=== PATIENT | female | born 1990 | race Caucasian/White ===

== ENCOUNTER → 2020-09-25 16:13 | Outpatient (CLI) | payer OTHER, SELFPAY ==
[2020-09-25 16:58] LABS: ALB/GLOB Ratio 1.1 RATIO (0.9-2.4); AST(SGOT) 21 U/L (15-37); Alanine Aminotransfer ALT/SGPT 31 U/L (13-56); Albumin, Serum 3.7 g/dL (3.2-5.0); Alkaline Phosphatase 36 U/L (45-117); Anion Gap 5 (5-15); BUN 10 mg/dL (7-18); BUN/Creat Ratio 13.4 RATIO (10-20); Calcium,Total 8.6 mg/dL (8.5-10.1); Chloride 110 mmol/L (98-107); Creatinine, Serum 0.75 mg/dL (0.55-1.02); EST Glomerular Filtration Rate 96 mL/min (>60); Est Glom Filt Rate - Afr Amer 116 mL/min (>60); Globulin 3.4 g/dL (2.2-4.2); Glucose 97 mg/dL (74-106); Potassium 3.9 mmol/L (3.5-5.1); Protein, Total 7.1 g/dL (6.4-8.2); Sodium Level 141 mmol/L (136-145)
[2020-09-25 17:14] LABS: hCG Titer Quant., Serum 6124 mIU/mL (1-3)
== END ==
PROVIDERS: Visit Provider Obstetrics & Gynecology
DX: O02.1 Missed abortion (principal)
CPT/HCPCS: 36415; 80053; 84702

== ENCOUNTER 2020-09-27 07:17 | Day surgery (SDC) | payer OTHER, SELFPAY ==
[2020-09-27] VITALS (9 sets, daily range): BP systolic 98–116; BP diastolic 57–74; PULSE 62–87; RESP 16; TEMP 36.1–36.9; O2SAT 99–100; BMI 26.5
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
--- NOTE | 2020-09-27 07:45 | POC_PTH ---
PATIENT: NATALEE WERNER LOC: [facility] [place] U#:[id number] AGE/SX: 29/F ROOM: RE09/27/[address]: Dr. Morgan Macedo MD : 1990 BED: DIS: 09/27/2020 SPEC #: [id number] RECD: 09/27/20 08:53 STATUS: ANATOLY REQ #: [id number] JERARDO: 09/27/20 07:[address]: Morgan Macedo DEPT: SURGICAL PATHOLOGY RECD BY: Jenniffer Ballesteros ENTERED: 09/28/20 08:07 SP TYPE: PROD CONC OTHR DR: Dr. Morgan Macedo MD ED Physician Provider Tissues: Product of conception, NOS Procedures: Surgery Specimen Level IV Comments: @ Ordering doctor for SUIV edited from ROSIBEL to @ by PAULIE at 09/28/20 0937 @ Submitting doctor edited from ROSIBEL to @ by PAULIE at 09/28/20 0937 HEADER OPERATION: Suction dilation and curettage PRE-OP DIAGNOSIS: Missed , suspect molar TISSUE SUBMITTED: Products of conception MICROSCOPIC DIAGNOSIS Products of conception: Decidua, gestational endometrium and immature chorionic villi (products of conception). See comment. SILVIA:serena 09/29/2020 COMMENT The specimen predominantly consists of decidua and gestational endometrium. Hydropic villi consistent with molar are not seen. The entire specimen is examined. A portion of tissue is submitted for cytogenetic studies and the results will be reported as an addendum. Clinical correlation and appropriate follow up are necessary. Case has been reviewed in consultation with Dr. Morales who concurs with the above diagnosis. IDC:AM MICROSCOPIC DESCRIPTION Slides are reviewed. GROSS DESCRIPTION Received in fixative is one container labeled with the patient's name and designated products of conception, suspect molar . The specimen consists of multiple irregular fragments of pink soft tissue that in aggregate measure 5 x 5 x 1.5 cm. A portion of tissue is submitted for cytogenetic studies. The entire specimen is submitted in six cassettes. / SILVIA:serena 09/28/20 TC:5 CPT: 27332 ADDENDUM ADDENDUM ADDENDUM ADDENDUM ADDENDUM ADDENDUM 10/07/2020 10:04 ADDENDUM 10/07/2020 10:04 ADDENDUM 10/07/2020 10:04 ADDENDUM 10/07/2020 10:04 ADDENDUM 10/07/2020 10:04 CYTOGENETICS REPORT FROM [facility] Case cancelled. No viable tissue or villi is present. Please see complete report in e-chart or EMR for further details
--- NOTE | 2020-09-27 08:44 | PCM.OPRPT ---
Report of Operation Date of Procedure: 09/27/20 Pre-Operative Diagnosis: Missed , suspected molar Post-Operative Diagnosis: Missed , suspected molar Surgery/Procedure Performed:: Ultrasound-guided suction dilation and curettage Description of Surgical Findings:: Surgeon: Morgan Macedo MD Anesthesia: MAC EBL: 25 cc Urine output: Not measured IV fluids: 200 cc Complications: None Specimen: Products of conception Findings: Ultrasound revealed similar findings to the office gestational sac with large amount of debris in the uterus. After suction dilation and curettage thin endometrial stripe noted on ultrasound. Consent: 29-year-old G2, P0 arrived originally with gestational sac with no embryo repeat ultrasound with similar findings diagnostic of missed . Second ultrasound also showed large amount of debris in uterus, hCG level greater than 6000, all other labs within normal limits. Based on these findings concern for molar . Patient in need of suction dilation and curettage. Patient understands the risk of the procedure include but are not limited to visceral vascular injury, prolonged hospitalization, blood loss and need for transfusion, reoperation. Patient state understanding wish to proceed. All questions consent was signed. Procedure: Patient was brought back to the OR where MAC anesthesia was found be adequate. 200 mg of doxycycline were given for infection prophylaxis. Patient was prepared and draped in dorsolithotomy position with yellowfin stirrups. Weighted speculum is placed in the posterior aspect of vagina. Cervical dilators used to dilate cervix. Ultrasound with above findings. Suction curettage was performed with 7 mm curved curette. Tissue to be sent to pathology. Ultrasound again was performed with thin endometrial stripe noted as above. Good hemostasis was noted. All counts correct x2. Patient tolerated procedure well was brought to recovery stable condition.
--- NOTE | 2020-09-27 08:50 | DCINST_ITS ---
Discharge Diet: No Restrictions Discharge Activity: Return to Normal Activity, May Drive, May Shower, - - no tub baths for two weeks May resume sexual activity in: 4-6 weeks Weight Bearing Status: Weight bearing as tolerated Call your doctor if your incision/area has: Continuous Slow Oozing, Foul Smelling Discharge Call your doctor if you observe: Fever of 101 or Higher, Shortness of breath, Chest pain Allergies/Adverse Reactions: Allergies No Known Allergies Allergy (Verified 09/27/20 07:30) Medications to take at Discharge NK 09/27/20 Primary Care Physician: Morgan Macedo MD [Primary Care Provider] - Test Results: Test results from this visit will be discussed in further detail at your follow- up appointment, if applicable. Please Follow Up With: Morgan Macedo MD When: two weeks
== END 2020-09-27 09:35 | disposition home or self-care (01) ==
LOC: SDC 07:49 → ED 08:00 → SDC 08:01 → ACINP 08:08
PROVIDERS: Visit Provider Obstetrics & Gynecology
PROC: (CPT 59812; principal; 2020-09-27 07:45)
DX: O02.89 Other abnormal products of conception (principal)
CPT/HCPCS: 59812; 88305; J7030; J2405

== ENCOUNTER 2021-07-13 11:27 | Outpatient (CLI) | payer OTHER, SELFPAY ==
[2021-07-13 11:34] VITALS: BP 123/78; PULSE 65; RESP 16; TEMP 36.4; O2SAT 100; BMI 27.1
[2021-07-13] MEDS: 0.9% Saline Lock 10 ML Syringe IV (11:39)
[2021-07-13 12:30] VITALS: BP 108/68; PULSE 70; RESP 16; TEMP 36.8; O2SAT 99
[2021-07-13 13:23] VITALS: BP 104/66; PULSE 69; RESP 16; TEMP 36.9; O2SAT 100
== END 2021-07-13 13:27 | disposition home or self-care (01) ==
LOC: MS3OUT 11:27 → MS3 11:27
PROVIDERS: Referring Provider Nurse Practitioner Acute Care; Visit Provider Nurse Practitioner Acute Care
DX: Z23 Encounter for immunization (principal); U07.1 COVID-19
CPT/HCPCS: J7050; M0245; Q0245; A4216

== ENCOUNTER 2021-09-22 08:38 | Outpatient (CLI) | payer OTHER, SELFPAY ==
[2021-09-22 09:20] LABS: Glucose GTT-Gestation. Fasting 87 mg/dL (<105)
[2021-09-22 11:26] LABS: Glucose GTT-Gestational 2 Hr 150 mg/dL (<165)
[2021-09-22 11:26] LABS: Glucose GTT-Gestational 1 Hr 150 mg/dL (<190)
[2021-09-22 12:54] LABS: Glucose GTT-Gestational 3 Hr 111 L (<145)
== END 2021-09-22 23:59 | disposition home or self-care (01) ==
LOC: WOBLAB 08:40
PROVIDERS: Visit Provider Obstetrics & Gynecology
DX: O24.912 Unspecified diabetes mellitus in pregnancy, second trimester (principal); Z3A.00 Weeks of gestation of pregnancy not specified
CPT/HCPCS: 36415; 82951; 82952

== ENCOUNTER 2021-11-15 18:53 | Inpatient (IN) | payer OTHER, SELFPAY ==
[2021-11-15 19:05] VITALS: BMI 33.2
[2021-11-15 19:10] VITALS: BP 121/84; PULSE 94
[2021-11-15] MEDS: Lactated Ringers 1,000 ML 50 ML IV (19:15)
[2021-11-15 19:31] LABS: Absolute Lymphocyte Count 2.28 X10^3/uL (0.83-4.51); Absolute Neutrophil Count 7.2 X10^3/uL (2.0-7.7); Basophil# 0.03 X10^3/uL; Basophil% 0.3 % (0-1); Eosinophil# 0.08 X10^3/uL; Eosinophils% 0.8 % (0-5); Hematocrit 36.5 % (37-47); Hemoglobin 12.6 g/dL (12.0-15.0); Lymphocyte # 2.28 X10^3/ul (0.83-4.51); Lymphocyte % 21.5 % (19-41); Mean Corp Hgb Conc 34.5 g/dL (32-36); Mean Corpuscular Hgb 30.4 pg (27.0-32.0); Mean Platelet Vol. 11.4 fl (6.2-12.0); Monocyte# 0.96 X10^3/uL; NRBC Flagged by Analyzer 0 % (0-5); Neutrophil # 7.22 X10^3/uL (2.7-7.7); Platelet Count 194 K/mm3 (150-450); RBC Distribution Width CV 12.2 % (11.6-14.6); RBC Distribution Width SD 39.3 fl (35.1-43.9); Red Blood Count 4.15 M/mm3 (4.2-5.4); White Blood Count 10.6 K/mm3 (4.4-11.0)
[2021-11-15 19:57] VITALS: BP 119/84; PULSE 104; TEMP 36.8
[2021-11-15 20:01] VITALS: PULSE 91; O2SAT 97
[2021-11-15] MEDS: miSOPROStol 25 MCG TABLET VAGINAL (20:10)
--- NOTE | 2021-11-15 20:25 | PCM.HP.BLA ---
History and Physical Date of Admission: 11/15/21 Chief complaint: Induction of labor at term History present illness: 31-year-old at 39 weeks and 5 days with PORTER 11/17/2021 by LMP arrives for induction of labor at term. Denies headache, visual changes, chest pain, shortness of breath, nausea vomiting, right upper quadrant pain. Patient has good movement. Septic history: G1: SAB ~20 G2: SAB ~21 G3: Current Past medical history: None Medications: vitamin Past surgical history: D&C Allergies: No known drug allergies Social history: Denies smoking, alcohol use, drug use Family history: Denies history DVT or PE Review of systems: Besides above pertinent positives a full review of systems was performed and found to be negative Physical exam: Vitals: Pulse 91 SpO2 97% on room air General: Normal appearing no acute distress HEENT: Normocephalic atraumatic no cervical adenopathy Cardiac/respiratory: Denies of excess muscles, nonlabored breathing Abdomen: Soft, nontender, gravid Extremities: No peripheral edema normal peripheral pulses Psych: Normal affect normal demeanor nonpressured speech Labs: White blood cell count 10.6, hemoglobin 12.6, hematocrit 36.5%, platelets 194 Assessment plan: 31-year-old G3, P0 at 39 weeks and 5 days arrives for induction of labor at term Abdomen labor and delivery CEFM GBS negative Cytotec induction Routine orders
[2021-11-16] VITALS (51 sets, daily range): BP systolic 96–150; BP diastolic 53–94; PULSE 57–118; RESP 16; TEMP 36.2–36.6; O2SAT 80–99
[2021-11-16] MEDS: miSOPROStol 25 MCG TABLET VAGINAL (00:30)
[2021-11-16] MEDS: Lactated Ringers 500 ML 999 ML IV ×2 (03:43→04:34)
[2021-11-16] MEDS: fentaNYL-bupivacaine (epidural) 100 ML BAG EPIDURAL ×2 (04:56→10:02)
--- NOTE | 2021-11-16 05:01 | PCM.PN.OB ---
Subjective Subjective Patient now comfortable with epidural. Objective Data Objective Data Vital Signs: Vital Signs Temp Pulse BP Pulse Ox 97.5 F L 71 121/73 H 96 11/16/21 03:36 11/16/21 05:01 11/16/21 05:01 11/16/21 04:56 Weight: 82.372 kg Body Mass Index (BMI) 33.2 Intake & Output: Intake and Output for Last 24 Hours 11/14/21 11/15/21 11/16/21 23:59 23:59 23:59 Intake Total 990.00 / 990.00 Balance 990.00 / 990.00 Lab / Micro Data Result Diagrams: 11/15/21 19:15 Labs: Laboratory Results - last 24 hr 11/15/21 19:15: WBC 10.6, RBC 4.15 L, Hgb 12.6, Hct 36.5 L, MCV 88.0, MCH 30.4, MCHC 34.5, RDW Std Deviation 39.3, RDW Coeff of Paula 12.2, Plt Count 194, MPV 11.4, Immature Gran % (Auto) 0.400, Neut % (Auto) 68.0, Lymph % (Auto) 21.5, [place] % (Auto) 9.0, Eos % (Auto) 0.8, Baso % (Auto) 0.3, Absolute Neuts (auto) 7.2, Absolute Lymphs (auto) 2.28, Nucleated RBC % 0 11/15/21 19:15: Blood Type A POSITIVE, Antibody Screen NEGATIVE Micro: Microbiology 11/15/21 19:15 Nasal Secretion SARS-CoV-2 Antigen (Rapid) - Final Physical Exam Const alert, oriented x3 and no apparent distress Resp normal respiratory effort GI Inspection: gravid Narrative: Last cervical exam by RN 2 cm NST FHR Rate Baby A Baseline: 135 Variability:: Moderate Accelerations:: 15 x 15 Decelerations:: None FHR Category:: Category I Uterine Activity:: q1-5 min Assessment & Plan (1) Elective induction of labor planned: PLAN: 39/6 weeks. Patient now comfortable with epidural. Plan to switch to Pitocin. We will start with contractions spaced out. All questions answered. (2) :
[2021-11-16] MEDS: Lactated Ringers 1,000 ML 200 ML IV ×2 (05:57→11:11)
[2021-11-16] MEDS: Oxytocin 30 units/NS 500 ml 30 UNITS/500 ML IV.SOLN IV (06:05)
[2021-11-16] MEDS: Amnioinfusion- 0.9% NS 1,000 ML IV.SOLN. INTRA-UTER (12:15)
[2021-11-16] MEDS: Cefazolin 2 GM in 0.9% Normal Saline 100 ML IV (12:32)
--- NOTE | 2021-11-16 13:11 | EX.PCM.OBRPT ---
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 Normal uterus, tubes, and ovaries. Consent: Patient arrived for induction of labor at term progressed with Cytotec and Pitocin noted to have SROM. Began to have variable decelerations, IUPC and FSE placed amnioinfusion started. Noted to have prolonged deceleration 50s to 60s for 6 to 7 minutes. OB stat was called, I arrived to the operating room with patient on hands and knees with now normal baseline heart tones. Patient was changed position to supine and cervix was checked, unchanged from previous nursing check 6 to 7 cm. Patient was watched in the OR for a prolonged period of time with recurrent variable decelerations even with amnioinfusion. Educated patient on findings. Discussed expectant management versus surgical management risk benefits alternatives. Patient elects for primary section for nonreassuring heart tones. Patient understands the risk of the procedure include but are not limited to visceral or vascular injury, prolonged hospitalization, blood loss and need for transfusion, reoperation. Patient state understanding and wished to proceed. All questions were answered and verbal consent was given. Procedure: Patient was brought back to the OR as noted above and given 2 g of Ancef and 500 mg of azithromycin for infection prophylaxis. Patient was prepared and draped in a supine position with leftward tilt. A Pfannenstiel incision was made at the skin with a scalpel. The incision was carried down to the fascia with a scalpel. The fascia was excised and extended laterally. Inferior aspect of the fascia was grasped and the underlying rectus and pyramidalis muscle were dissected off sharply with Casey scissors. In a similar aspect the superior aspect of the fascia was grasped with a clamp and the underlying rectus muscle was dissected off sharply. Rectus muscle was dissected at the midline down to the level of the pubic symphysis. Preperitoneal fatty tissue was noted and peritoneum was entered bluntly. Peritoneum was extended superiorly and inferiorly with good visualization of bladder. Bladder blade was inserted and vesicouterine peritoneum was identified. Low transverse hysterotomy was made. Hand was brought to the incision and gentle fundal pressure was applied once the head was brought in the incision and the bladder blade was removed. Head and shoulders were delivered with ease. Cord was cut and clamped. They was handed off to nursing. Placenta was delivered via cord traction and fundal massage. IV oxytocin was initiated in order to facilitate uterine contractions. Uterus was exteriorized and hysterotomy was closed in a continuous running fashion. Second layer was performed. Good hemostasis was noted. Uterus was placed back into the abdominal cavity and incision was reinspected, good hemostasis was noted. Fascia was closed in a continuous running fashion with PDS suture. Subcutaneous irrigation was performed. Skin was closed in a subcuticular fashion. All counts were correct x2. Patient tolerated procedure well and was brought to recovery in stable condition.
[2021-11-16] MEDS: Oxytocin 30 units/NS 500 ml 30 UNITS/500 ML IV.SOLN 167 UNITS IV (13:30)
[2021-11-16] MEDS: Ketorolac 30 MG/ML Syringe IV ×2 (14:15→20:08)
--- NOTE | 2021-11-16 14:20 | CM.ED ---
SW Note SW responded to ERT. SW provided emotional support to fob. SW remains available if needs arise. Socorro SIMS
[2021-11-16] MEDS: Lactated Ringers 1,000 ML 100 ML IV (16:33)
[2021-11-16] MEDS: Acetaminophen 500 MG Tablet 1000 MG PO ×2 (16:44→22:15)
[2021-11-17 00:35] VITALS: BP 99/65; PULSE 63; RESP 16; TEMP 36.3; O2SAT 97
[2021-11-17] MEDS: Enoxaparin 40 MG/0.4 ML Syringe SC ×2 (00:42→22:23)
[2021-11-17] MEDS: 0.9% Saline Lock 10 ML Syringe IV (02:12)
[2021-11-17] MEDS: Ketorolac 30 MG/ML Syringe IV ×2 (02:12→08:15)
[2021-11-17] MEDS: Acetaminophen 500 MG Tablet 1000 MG PO ×4 (04:32→22:19)
[2021-11-17 04:44] VITALS: BP 108/63; PULSE 71; RESP 16; TEMP 36.9; O2SAT 95
[2021-11-17 05:09] LABS: Hematocrit 30.8 % (37-47); Hemoglobin 10.5 g/dL (12.0-15.0); Mean Corp Hgb Conc 34.1 g/dL (32-36); Mean Corpuscular Hgb 30.5 pg (27.0-32.0); Mean Corpuscular Volume 89.5 fL (81-99); Mean Platelet Vol. 10.8 fl (6.2-12.0); Platelet Count 145 K/mm3 (150-450); RBC Distribution Width CV 12.4 % (11.6-14.6); RBC Distribution Width SD 40.3 fl (35.1-43.9); Red Blood Count 3.44 M/mm3 (4.2-5.4); White Blood Count 11.5 K/mm3 (4.4-11.0)
[2021-11-17 08:00] VITALS: BP 115/70; PULSE 68; RESP 16; TEMP 36.3; O2SAT 96
--- NOTE | 2021-11-17 09:14 | PCM.PN.OB ---
Subjective Subjective Pt without complaints. Tolerating diet well. Denies flatus. Minimal vaginal bleeding. Pain well controlled. Objective Data Objective Data Good urine output. CBC OK. Vital Signs: Vital Signs Temp Pulse Resp BP Pulse Ox 97.3 F L 68 16 115/70 96 11/17/21 08:00 11/17/21 08:00 11/17/21 08:00 11/17/21 08:00 11/17/21 08:00 Oxygen Delivery Method Room Air Weight: 181 lb 9.6 oz Body Mass Index (BMI) 33.2 Intake & Output: Intake and Output for Last 24 Hours 11/15/21 11/16/21 11/17/21 23:59 23:59 23:59 Intake Total 3969.30 / 3969.30 803.33 / 803.33 Output Total 1200 / 1200 1525 / 1525 Balance 2769.30 / 2769.30 -721.67 / -721.67 Lab / Micro Data Result Diagrams: 11/17/21 05:00 Labs: Laboratory Results - last 24 hr 11/17/21 05:00: WBC 11.5 H, RBC 3.44 L, Hgb 10.5 L, Hct 30.8 L, MCV 89.5, MCH 30.5, MCHC 34.1, RDW Std Deviation 40.3, RDW Coeff of Paula 12.4, Plt Count 145 L, MPV 10.8 Micro: Microbiology 11/15/21 19:15 Nasal Secretion SARS-CoV-2 Antigen (Rapid) - Final Assessment & Plan (1) Delivery by section: PLAN: Doing well POD 1 s/p primary for FTP. Continuing present care.
[2021-11-17] MEDS: Senna/Docusate Sodium 1 Tablet PO (10:30)
[2021-11-17 14:38] VITALS: BP 116/67; PULSE 65; RESP 16; TEMP 36.4; O2SAT 94
[2021-11-17] MEDS: Ibuprofen 600 MG Tablet PO ×2 (14:52→20:17)
--- NOTE | 2021-11-17 18:51 | NURSING ---
this RN has reviewed and agrees with charting completed by Alexis Meraz, orienting RN
[2021-11-17 20:01] VITALS: BP 108/64; PULSE 89; RESP 16; TEMP 36.8
[2021-11-18 02:17] VITALS: BP 118/65; PULSE 60; RESP 16; TEMP 36.8; O2SAT 95
[2021-11-18] MEDS: Ibuprofen 600 MG Tablet PO ×2 (02:19→07:52)
[2021-11-18] MEDS: Acetaminophen 500 MG Tablet 1000 MG PO (03:59)
--- NOTE | 2021-11-18 07:18 | PCM.DC.BLA ---
Discharge Summary Date of Admission: 11/16/21 Date of Discharge: 11/18/21 Summary: Patient arrived on 11/15/2021 for induction of labor at term. Subsequently had nonreassuring heart tones and proceeded with primary section on 11/16/2021. Routine postop recovery. Patient discharged home on 11/18/2021 Meaningful Use Info Meaningful Use Diagnoses (Choose all that apply): None applicable Discharge Plan Admission Admit Date/Time: 11/15/21 18:53 Primary Reason for Your Visit: Induction of labor Attending Provider: Morgan Macedo Primary Care Provider: Care ,Bleén Primary Instructions Additional Instructions / Restrictions: Regular diet. No lifting over 25 pounds for 2 to 3 weeks. No tub baths for 2 weeks. Okay to shower. [place] for 4 to 6 weeks. Call if fevers, chills, chest pain, shortness of breath. Follow-up 2 weeks postoperatively, 4 to 6 weeks Discharge Orders/Prescriptions Prescriptions: New oxycodone 5 mg Tablet 5 mg PO Q6H PRN PRN (Reason: Pain Score 7-10) 4 Days Qty: 16 RF: 0 Continued [id number] 1 mg Tablet 1 tab PO DAILY RF: 0 Referrals / Follow Up: Care Physician,No Primary [Primary Care Provider] - Disposition Disposition (needs filled in before D/C Order can be placed): Home, Self Care
--- NOTE | 2021-11-18 07:19 | PCM.PN.OB ---
Subjective Subjective No overnight complaints. Pain well controlled. Objective Data Objective Data Vital Signs: Vital Signs Temp Pulse Resp BP Pulse Ox 98.2 F 60 16 118/65 95 11/18/21 02:17 11/18/21 02:17 11/18/21 02:17 11/18/21 02:17 11/18/21 02:17 Oxygen Delivery Method Room Air Weight: 181 lb 9.6 oz Body Mass Index (BMI) 33.2 Intake & Output: Intake and Output for Last 24 Hours 11/16/21 11/17/21 11/18/21 23:59 23:59 23:59 Intake Total 3969.30 / 3969.30 803.33 / 803.33 Output Total 1200 / 1200 1525 / 1525 Balance 2769.30 / 2769.30 -721.67 / -721.67 Lab / Micro Data Result Diagrams: 11/17/21 05:00 Micro: Microbiology 11/15/21 19:15 Nasal Secretion SARS-CoV-2 Antigen (Rapid) - Final Physical Exam Const alert, oriented x3, no apparent distress, average body habitus, healthy appearing and well nourished HEENT normocephalic and moist oral mucous membranes Head and Scalp: atraumatic Face and Sinus: normal facial exam Neck full ROM Resp normal respiratory effort, no retractions and no use of accessory muscles GI GI Narrative: Soft, nontender, bandage clean dry and intact Extremity normal to inspection, full ROM and no clubbing, cyanosis or edema Psych mental status grossly normal, affect normal, speech normal and activity/motor behavior normal Assessment & Plan (1) Delivery by section: PLAN: Postop day 2 status post primary section for nonreassuring heart tones. Breast-feeding. Pain well controlled. Okay to discharge home today
[2021-11-18 07:49] VITALS: BP 119/72; PULSE 61; RESP 14; TEMP 36.7; O2SAT 97
== END 2021-11-18 09:34 | disposition home or self-care (01) | DRG 788 ==
PROVIDERS: Student in an Organized Health Care Education/Training Program; Admitting Provider Obstetrics & Gynecology; Visit Provider Obstetrics & Gynecology
DX: O76 Abnormality in fetal heart rate and rhythm complicating labor and delivery (principal); O26.23 Pregnancy care for patient with recurrent pregnancy loss, third trimester; O42.92 Full-term premature rupture of membranes, unspecified as to length of time between rupture and onset of labor; Z37.0 Single live birth; Z3A.39 39 weeks gestation of pregnancy
CPT/HCPCS: 59025; 59050; 85025; 85027; 86850; 86900; 86901; 87426; 99218; J7030; J7120; A4216; G0378

== ENCOUNTER → 2023-05-03 | Outpatient (CLI) | payer OTHER, SELFPAY ==
[2023-05-03 13:19] LABS: NATERA MAILED SPECIMEN
== END | disposition home or self-care (01) ==
LOC: LAB 12:18
PROVIDERS: PCP Internal Medicine; Referring Provider Obstetrics & Gynecology; Visit Provider Obstetrics & Gynecology
DX: Z34.82 Encounter for supervision of other normal pregnancy, second trimester (principal)
CPT/HCPCS: 36415

== ENCOUNTER → 2023-07-19 | Outpatient (CLI) | payer OTHER, SELFPAY ==
[2023-07-19 08:17] LABS: Absolute Lymphocyte Count 1.68 X10^3/uL (0.83-4.51); Absolute Neutrophil Count 5.9 X10^3/uL (2.0-7.7); Basophil# 0.03 X10^3/uL; Basophil% 0.4 % (0-1); Eosinophils% 1.2 % (0-5); Hemoglobin 12.4 g/dL (12.0-15.0); Lymphocyte # 1.68 X10^3/ul (0.83-4.51); Lymphocyte % 20.3 % (19-41); Mean Corp Hgb Conc 33.5 g/dL (32-36); Mean Corpuscular Hgb 31.2 pg (27.0-32.0); Mean Corpuscular Volume 93.2 fL (81-99); Mean Platelet Vol. 10.1 fl (6.2-12.0); Monocyte# 0.59 X10^3/uL; Monocyte% 7.1 % (0-10); NRBC Flagged by Analyzer 0 % (0-5); Neutrophil # 5.85 X10^3/uL (2.7-7.7); Neutrophil % 70.5 % (47-70); Platelet Count 146 K/mm3 (150-450); RBC Distribution Width CV 13.2 % (11.6-14.6); RBC Distribution Width SD 45.1 fl (35.1-43.9); Red Blood Count 3.97 M/mm3 (4.2-5.4); White Blood Count 8.3 K/mm3 (4.4-11.0)
[2023-07-19 08:39] LABS: Glucose Challenge Gest 1H 50g 126 mg/dL (70-140)
[2023-07-19 09:12] LABS: HIV - WCH Non-Reactive (Nonreactive); Syphilis Antibodies Non-reactive
== END | disposition home or self-care (01) ==
PROVIDERS: Registered Nurse; PCP Internal Medicine; Referring Provider Obstetrics & Gynecology; Visit Provider Obstetrics & Gynecology
DX: Z34.90 Encounter for supervision of normal pregnancy, unspecified, unspecified trimester (principal)
CPT/HCPCS: 36415; 82950; 85025; 86703; 86780; 86850; 86900; 86901

== ENCOUNTER → 2023-07-24 | Outpatient (CLI) | payer OTHER, SELFPAY ==
[2023-07-28 14:09] LABS: HPV APTIMA, High Risk Positive (Negative)
== END | disposition home or self-care (01) ==
LOC: LABSPEC 16:26
PROVIDERS: PCP Internal Medicine; Referring Provider Nurse Practitioner Women's Health; Visit Provider Nurse Practitioner Women's Health
DX: Z12.4 Encounter for screening for malignant neoplasm of cervix (principal)
CPT/HCPCS: 87624; 88175; G0145

== ENCOUNTER → 2023-08-24 | Outpatient (CLI) | payer OTHER, SELFPAY ==
--- OUTSIDE RECORDS SUMMARY | 2023-08-24 12:50 | XMS RPT_ITS | CCD ---
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 Pt denies fever,chills, vaginal discharge. Provider: Dr. Rodney Bauman CONSENT/INSTRUCTIONS: Carol has been counseled regarding the alternatives, effectiveness and potential complications of this procedure, including, but not limited to infection, bleeding, incomplete drainage or resolution, potential recurrence despite adequate drainage, and scarring. She has been advised of the recommendation to leave the Word catheter in place for six weeks, if possible. She has signed the form indicating her understanding of the above and agreement with undergoing this procedure. Consents witnessed. NARRATIVE: The area was cleansed with povidone iodine solution and anesthetized with 1% xylocaine, 2 cc. subcutaneously. After stabilizing manually, the cyst was punctured with a scalpel blade. purulent fluid exuded, culture was taken, and the opening was enlarged slightly with a hemostat. Then, a Word catheter was inserted into the cyst/abscess and the balloon inflated with 3 cc. saline. The patient tolerated the procedure well and left in good condition. See orders for prescriptions. PLAN: Return for follow-up in 1-2 weeks, if needed. She was advised to perform sitz baths bid and use a spray bottle of warm water to rinse after urination or bowel movements. Antibiotics given. * Olya Irving MA - 03/13/2020 10:11 AM EDT Review of Systems Constitutional: Negative. HENT: Negative. Eyes: Negative. Respiratory: Negative. Cardiovascular: Negative. Gastrointestinal: Negative. Endocrine: Negative. Genitourinary: Positive for genital sores. Musculoskeletal: Negative. Skin: Negative. Allergic/Immunologic: Negative. Neurological: Negative. Hematological: Negative. Psychiatric/Behavioral: Negative. All other systems reviewed and are negative. 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 Patient states thatlast week, she experienced a positive home test on and Monday. She is actively attempting conception. However, this morning, she began experiencing a moderate amount of spotting and cramping, which is the time her menses should begin. Review of Systems: Constitutional: Negative. HENT: Negative. Eyes: Negative. Respiratory: Negative. Gastrointestinal: Negative. Endocrine: Negative. Genitourinary: Positive for vaginal bleeding. Musculoskeletal: Negative. Skin: Negative. Neurological: Negative. Hematological: Negative. Psychiatric/Behavioral: Negative. Pt declines a tourist camp attendant for her pelvic exam today. Obstetrical History: OB History 0 Para 0 Term 0 0 AB 0 Living 0 SAB 0 TAB 0 Ectopic 0 Multiple 0 Live Births 0 Gynecology History: LMP: 06/28/2020 STIs: denies Abnormal pap smears: denies Past Medical History: No past medical history on file. Past surgical History: Past Surgical History: Procedure Laterality Date VAGINA SURGERY Injury as child Allergies No Known Allergies Social History: Social History Social History Narrative Not on file Family History: Family History Problem Relation Age of Onset Coronary artery disease Father Cancer Maternal Grandmother Cancer Paternal Grandfather Objective: PACU Vitals 07/29/20 0944 BP: 128/85 Pulse: 73 Temp: 98.1 F (36.7 C) SpO2: 98% Physical Exam: Physical Exam Constitutional: General: She is not in acute distress. Appearance: Normal appearance. She is normal weight. Neurological: General: No focal deficit present. Mental Status: She is alert and oriented to person, place, and time. Vitals signs reviewed. Assessment: Mrs Link is a 29 year old premenopausal G0 with no significant past medical history who presents with a chemical . Plan: // Chemical - Patient reports having two positive urine test last week - However this morning, she experienced a moderate amount of bleeding and cramping, similar to a menses - Vital signs stable - She reports minimal bleeding currently - UPT negative - These finding are consistent with a chemical , which is an early loss shortly after ovulation - This will not have any impact on fertility - Patient is actively trying to conceive and therefore recommend vitamins Mo Valenzuela M.D. * Karma Ramos MA - 07/29/2020 9:45 AM EST Review of Systems Constitutional: Negative. HENT: Negative. Eyes: Negative. Respiratory: Negative. Gastrointestinal: Negative. Endocrine: Negative. Genitourinary: Positive for vaginal bleeding. Musculoskeletal: Negative. Skin: Negative. Neurological: Negative. Hematological: Negative. Psychiatric/Behavioral: Negative. Pt declines a tourist camp attendant for her pelvic exam today. documented in this encounter Reason for Referral Specialty Diagnoses / Procedures Referred By Osei hernandez Referred To Contact Hematology Diagnoses Hypercoagulable state (HCC) Procedures CONSULT TO HEMATOLOGY OFFICE/OUTPATIENT [facility] MDM 60-74 MINUTES Syeda Shaver, CARL.REAL ESTATE INTERN [address] [place] [address] Referral ID Status Reason Start Date Expiration Date Visits Requested Visits Authorized [id number] Authorized PCP Requested Referral 12/08/2022 12/08/2023 1 1 Additional Source Comments INFORMATION SOURCE (unrecogn ized section and content) DATE CREATED AUTHOR AUTHOR'S ORGANIZ ATION 08/02/2020 [facility] DATE CREATED AUTHOR AUTHOR'S ORGANIZ ATION 04/30/2023 [facility] Reason for Visit (unrecogniz ed section and content) 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 Denies cramping. Urine test in office is negative. Reason Comments Established Patient Reason Comments Establish Care Reason Comments Patient Question Reason Comments Patient Question Addendum Note - Patricia Carter CNM - 03/13/2020 11:41 AM EDTAddendum Note - Karma Ramos MA - 03/13/2020 11:38 AM EDTAddendum Note - Mo Valenzuela MD - 07/29/2020 10:13 AM EST Miscellaneous Notes (unrecog nized section and content) Addended by: PATRICIA CARTER on: 03/13/2020 11:41 AM Modules accepted: Orders Addended by: KARMA RAMOS on: 03/13/2020 11:38 AM Modules accepted: Orders documented in this encounter Addended by: MO VALENZUELA on: 07/29/2020 10:13 AM Modules accepted: Level of Service documented in this encounter Source Comments (unrecognize d section and content) In the event this informatio n is protected by the Federal Confidentiality of Alcohol and Drug Abuse Patient Records regulations: The Federal rules restrict any use of the information to criminally investigate or prosecute any alcohol or drug abuse patient.[facility] the event this information is protected by the Federal Confidentiality of Alcohol and Drug Abuse Patient Records regulations: The Federal rules restrict any use of the information to criminally investigate or prosecute any alcohol or drug abuse patient.[facility] HospitalIn the event this information is protected by the Federal Confidentiality of Alcohol and Drug Abuse Patient Records regulations: The Federal rules restrict any use of the information to criminally investigate or prosecute any alcohol or drug abuse patient.[facility] the event this information is protected by the Federal Confidentiality of Alcohol and Drug Abuse Patient Records regulations: The Federal rules restrict any use of the information to criminally investigate or prosecute any alcohol or drug abuse patient.[facility] Hospital[facility] the event this information is protected by the Federal Confidentiality of Alcohol and Drug Abuse Patient Records regulations: The Federal rules restrict any use of the information to criminally investigate or prosecute any alcohol or drug abuse patient.[facility] HospitalIn the event this information is protected by the Federal Confidentiality of Alcohol and Drug Abuse Patient Records regulations: The Federal rules restrict any use of the information to criminally investigate or prosecute any alcohol or drug abuse patient.[facility] HospitalIn the event this information is protected by the Federal Confidentiality of Alcohol and Drug Abuse Patient Records regulations: The Federal rules restrict any use of the information to criminally investigate or prosecute any alcohol or drug abuse patient.[facility] Care Teams (unrecognized sec tion and content) Hose Seamer Relationship Specialty Start Date End Date Warren Briones MD [address] [place] [address] PCP - General Internal Medicine 11/21/22 Susanne Long MD [address] [place] [place] [address] Oncology 12/08/22 12/08/22 Vincent Edwards MD [address] [place] [address] Hematology/Oncology 12/08/22 12/08/22 Hose Seamer Relationship Specialty Start Date End Date Warren Briones MD [address] [place] [address] PCP - General Internal Medicine 11/21/22 Phil Messer MD [address] [place] [address] Hematology/Oncology 12/15/22 Hose Seamer Relationship Specialty Start Date End Date Warren Briones MD [address] [place], [place] [address] PCP - General Internal Medicine 11/21/22 Phil Messer MD [address] [place], [place] [id number] Hematology/Oncology 12/15/22 Hose Seamer Relationship Specialty Start Date End Date Warren Briones MD [address] [place], [place] [id number] PCP - General Internal Medicine 11/21/22 Phil Messer MD [address] [place], [place] [id number] Hematology/Oncology 12/15/22 FOR RECORDS PERTAINING TO PATIENTS WHO ARE OR HAVE BEEN ENROLLED IN A CHEMICAL DEPENDENCY/SUBSTANCEABUSE PROGRAM, SOME INFORMATION MAY BE OMITTED. This clinical summary was aggregated from multiple sources. Caution should be exercised in using it in the provision of clinical care. This summary normalizes information from multiple sources, and as a consequence, information in this document may materially change the coding, format and clinical context of patient data. In addition, data may be omitted in some cases. CLINICAL DECISIONS SHOULD BE BASED ON THE PRIMARY CLINICAL RECORDS. [facility]. provides no warranty or guarantee of the accuracy or completeness of information in this document.
[2023-08-24 13:09] LABS: Absolute Lymphocyte Count 1.75 X10^3/uL (0.83-4.51); Absolute Neutrophil Count 7.3 X10^3/uL (2.0-7.7); Basophil# 0.04 X10^3/uL; Basophil% 0.4 % (0-1); Eosinophil# 0.04 X10^3/uL; Eosinophils% 0.4 % (0-5); Hematocrit 38.2 % (37-47); Hemoglobin 13.2 g/dL (12.0-15.0); Lymphocyte # 1.75 X10^3/ul (0.83-4.51); Lymphocyte % 17.4 % (19-41); Mean Corp Hgb Conc 34.6 g/dL (32-36); Mean Corpuscular Hgb 31.3 pg (27.0-32.0); Mean Corpuscular Volume 90.5 fL (81-99); Mean Platelet Vol. 10.4 fl (6.2-12.0); Monocyte# 0.91 X10^3/uL; NRBC Flagged by Analyzer 0 % (0-5); Neutrophil # 7.29 X10^3/uL (2.7-7.7); Neutrophil % 72.5 % (47-70); Platelet Count 146 K/mm3 (150-450); RBC Distribution Width CV 13.1 % (11.6-14.6); RBC Distribution Width SD 42.6 fl (35.1-43.9); Red Blood Count 4.22 M/mm3 (4.2-5.4); White Blood Count 10.1 K/mm3 (4.4-11.0)
== END | disposition home or self-care (01) ==
LOC: LAB 12:27
PROVIDERS: Nurse Practitioner Women's Health; PCP Internal Medicine; Referring Provider Obstetrics & Gynecology; Visit Provider Obstetrics & Gynecology
DX: O99.119 Other diseases of the blood and blood-forming organs and certain disorders involving the immune mechanism complicating pregnancy, unspecified trimester (principal); D69.6 Thrombocytopenia, unspecified; Z3A.00 Weeks of gestation of pregnancy not specified
CPT/HCPCS: 36415; 85025

== ENCOUNTER 2023-08-30 14:00 | Outpatient (CLI) | payer OTHER, SELFPAY ==
[2023-08-30 14:17] VITALS: BMI 32.0
[2023-08-30] MEDS: Lactated Ringers 1,000 ML 999 ML IV (14:20)
[2023-08-30 14:24] VITALS: TEMP 37.4; O2SAT 99
[2023-08-30 14:25] VITALS: BP 126/82; PULSE 91
[2023-08-30 14:29] VITALS: PULSE 85; O2SAT 98
[2023-08-30 14:52] LABS: Absolute Lymphocyte Count 1.75 X10^3/uL (0.83-4.51); Absolute Neutrophil Count 7.7 X10^3/uL (2.0-7.7); Basophil# 0.02 X10^3/uL; Basophil% 0.2 % (0-1); Eosinophil# 0.04 X10^3/uL; Eosinophils% 0.4 % (0-5); Hematocrit 38.4 % (37-47); Hemoglobin 13.4 g/dL (12.0-15.0); Lymphocyte # 1.75 X10^3/ul (0.83-4.51); Lymphocyte % 16.8 % (19-41); Mean Corp Hgb Conc 34.9 g/dL (32-36); Mean Corpuscular Hgb 31.4 pg (27.0-32.0); Mean Corpuscular Volume 89.9 fL (81-99); Mean Platelet Vol. 10.6 fl (6.2-12.0); Monocyte# 0.85 X10^3/uL; Monocyte% 8.2 % (0-10); NRBC Flagged by Analyzer 0 % (0-5); Neutrophil # 7.72 X10^3/uL (2.7-7.7); Platelet Count 152 K/mm3 (150-450); RBC Distribution Width CV 13.1 % (11.6-14.6); RBC Distribution Width SD 42.6 fl (35.1-43.9); Red Blood Count 4.27 M/mm3 (4.2-5.4); White Blood Count 10.4 K/mm3 (4.4-11.0)
[2023-08-30 15:41] LABS: ALB/GLOB Ratio 0.7 RATIO (0.9-2.4); AST(SGOT) 14 U/L (15-37); Alanine Aminotransfer ALT/SGPT 16 U/L (13-56); Albumin, Serum 2.7 g/dL (3.2-5.0); Alkaline Phosphatase 69 U/L (45-117); Anion Gap 4 (5-15); BUN 7 mg/dL (7-18); BUN/Creat Ratio 11.7 RATIO (10-20); Calcium,Total 8.4 mg/dL (8.5-10.1); Chloride 111 mmol/L (98-107); EST Glomerular Filtration Rate 121 mL/min (>60); Est Glom Filt Rate - Afr Amer 147 mL/min (>60); Estimated Creatinine Clearance 129.01 ml/min; Globulin 3.9 g/dL (2.2-4.2); Glucose 105 mg/dL (74-106); Potassium 3.8 mmol/L (3.5-5.1); Protein, Total 6.6 g/dL (6.4-8.2); Sodium Level 136 mmol/L (136-145)
[2023-08-30 15:56] VITALS: BP 113/74; PULSE 93; TEMP 37
--- NOTE | 2023-08-30 17:14 | OB.TRI.HP_ITS ---
HPI - General HPI Narrative NATALEE WERNER, is a 32 y/o who was sent to L&D for IV fluids and further monitoring due to finding of uterine tachysytole in the office during her routine NST today. She also was unable to void more than a very small amount in the office. Dehydration is suspected. 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 Calculator Estimated Delivery Date Method Current WG Current Estimate 10/15/23 LMP (Certain) 33w 3d PFSH PFSH Medical History Abnormal Papanicolaou smear of cervix with positive human papilloma virus (HPV) test APS (antiphospholipid syndrome) Home Medications glqfejri-hoc-[id number]-FA 1 mg tablet 1 tab PO DAILY 07/13/21 [History Last Taken 11/15/21] enoxaparin 40 mg/0.4 mL subcutaneous syringe mg subcut 06/05/23 [History Last Taken Unknown] Allergy/AdvReac Type Severity Reaction Status Date / Time No Known Allergies Allergy Verified 08/30/23 13:01 Family History Grandmother Diabetes Breast cancer Father Heart disease Surgical History H/O dilation and curettage History of colposcopy S/P Social History Smoking Status: Never smoker alcohol intake: current alcohol intake frequency: a few times a month details: not while caffeine: Yes Type: coffee Number of servings: 1 what type of physical activity do you participate in: walking frequency: daily seatbelt use: always do you feel safe at home: Yes additional social history: - Alonso History 4 Elective abortions Hx Para 1 Spontaneous abortions 2 Hx # Term Pregnancies 1 Ectopic pregnancies Hx # Pregnancies Multiple births # of living children 1 Past Pregnancies Del. Date Name GA/Weeks Outcome Route Bth Weight Gen Labor Lgth Anesthesia Del Locatn Provider FOB 11/16/21 Samson 40 live - full term 7lbs 13oz Female [facility] Dr. Morgan Gupta Delivery Date: 11/16/21 Last Updated by: Jessi Multani APS. IOL-HR continued to drop, decided csection, cord was wrapped around baby's arm Visit Details Expected Delivery Route/Plan for repeat section Plans Covid status: declined Flu vaccine: given Tdap vaccine: given Rhogam: na LARC form signed: [] movement and labor precautions reviewed. Problem list reviewed and updated with the most current plan of care details and appropriate orders placed. Relevant counseling for the gestational age provided. Continue routine care and follow up unless otherwise noted in visit notes/problem list details OB Flowsheet Initial Weight: Not Recorded Date -?-?-?-?-?-?-?-?-?-?-?-?- EGA Weight BP Urine Prot -?-?-?-?-?-?-?-?-?-?-?-?- Glucose FHR FuHt Pres Dilation -?-?-?-?-?-?-?-?-?-?-?-?- Effaced St Visit Note 05/03/23 -?-?-?-?-?-?-?-?-?-?-?-?- 16w 3d 148 lb 4 oz 127/84 Nega tive -?-?-?-?-?-?-?-?-?-?-?-?- Negative 150 -?-?-?-?-?-?-?-?-?-?-?-?- JV- transfer fro harsh ha on heparin, switching to lovenox for APL. sees [facility] hematology. plan for rpt cs 05/31/23 -?-?-?-?-?-?-?-?-?-?-?-?- 20w 3d 158 lb 126/79 Negative -?-?-?-?-?-?-?-?-?-?-?-?- Negative 145 -?-?-?-?-?-?-?-?-?-?-?-?- JV- doing well o n the lovenox and submitted request for cs. 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 bedside scan shows anterior placenta. 06/28/23 -?-?-?-?-?-?-?-?-?-?-?-?- 24w 3d 159 lb 8 oz 122/83 -?-?-?-?-?-?-?-?-?-?-?-?- 155 25 -?-?-?-?-?-?-?-?-?-?-?-?- LC- lof/vb/ctx. good fm. 28 week labs ordered. 07/24/23 -?-?-?-?-?-?-?-?-?-?-?-?- 28w 1d 167 lb 4 oz 124/82 Nega tive -?-?-?-?-?-?-?-?-?-?-?-?- Negative 148 28 0 -?-?-?-?-?-?-?-?-?-?-?-?- MH-No VB, LOF. G ood Fm. Will rpt CBC 4 wk due to low platelets. See exam/pap collected 08/10/23 -?-?-?-?-?-?-?-?-?-?-?-?- 30w 4d 169 lb 2 oz 123/81 Nega tive -?-?-?-?-?-?-?-?-?-?-?-?- Negative 150 30 -?-?-?-?-?-?-?-?-?-?-?-?- KW- no vb/lof/ct x. good fm. 08/24/23 -?-?-?-?-?-?-?-?-?-?-?-?- 32w 4d 172 lb 142/87 115/77 Negative -?-?-?-?-?-?-?-?-?-?-?-?- Negative 140 32 -?-?-?-?-?-?-?-?-?-?-?-?- SM- no vb lof go od fm no regular ctx SM- no vb lof good fm no reg ular ctx discussed testing 08/28/23 -?-?-?-?-?-?-?-?-?-?-?-?- 33w 1d 172 lb 4 oz 135/86 Nega tive -?-?-?-?-?-?-?-?-?-?-?-?- Negative 140 34 -?-?-?-?-?-?-?-?-?-?-?-?- SM- no vb lof go od fm no regular ctx colp done and neg 08/30/23 -?-?-?-?-?-?-?-?-?-?-?-?- 33w 3d 171 lb 8 oz 129/82 Nega tive -?-?-?-?-?-?-?-?-?-?-?-?- Negative 150 -?-?-?-?-?-?-?-?-?-?-?-?- JV- no lof, vagi nal bleeding, or dec fm. on nst having q30 second to 1 minute contractions. sending to L&D for labs and fluids. ROS Constitutional Constitutional: Reports systems reviewed and no addt'l complaints, except as documented Gastrointestinal Gastrointestinal: Denies bloating, constipation, cramping, diarrhea, nausea or vomiting Genitourinary Genitourinary: Reports other Details: Denies vaginal odor, vaginal bleeding, or vaginal discharge ; Denies difficulty urinating or flank pain NST FHR Rate Baby A Baseline: 150 Variability:: Moderate Accelerations:: 15 x 15 Decelerations:: None NST Reactive:: Yes FHR Category:: Category I Assessment & Plan (1) Dehydration during : (2) Thrombocytopenia affecting : COMMENT: 146. Rpt 4 wk 08/24/23: 146 again/stable. Rpt 4 wk (3) Abnormal Papanicolaou smear of cervix with positive human papilloma virus (HPV) test: COMMENT: hgsil 2021 --- WILI 1 07/2022/colp bx. repeat pap 07/24/2023: (4) APS (antiphospholipid syndrome): COMMENT: lovenox 40 mg daily. discussed baby ASA. recommend weekly NSTs from 32 on, growth q 4 weeks (5) : QUALIFIERS: Weeks of gestation: 33 weeks Qualified Code(s): Z3A.33 - 33 weeks gestation of COMMENT: NIPT low risk, declined carrier, RCS 10/09/23. 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 PC Samson (girl) : Alonso PLAN: Plan uterine contractions resolved with IV hydration cbc and CMP did not show anemia or significant electrolyte abnormality. ok to dc patient to home. Charges/Coding Multi Select Codes Urinary/Genital Urinary/Genital CPT Codes: 12079-43 non-stress test Interp
== END 2023-08-30 16:00 | disposition home or self-care (01) ==
LOC: WPOUT 14:04 → WP 14:05
PROVIDERS: PCP Internal Medicine; Referring Provider Obstetrics & Gynecology; Visit Provider Obstetrics & Gynecology
DX: O99.283 Endocrine, nutritional and metabolic diseases complicating pregnancy, third trimester (principal); D69.6 Thrombocytopenia, unspecified; D68.61 Antiphospholipid syndrome; O99.113 Other diseases of the blood and blood-forming organs and certain disorders involving the immune mechanism complicating pregnancy, third trimester; E86.0 Dehydration; Z3A.33 33 weeks gestation of pregnancy
CPT/HCPCS: 96365; 36415; 59050; 80053; 85025; 99221; J7120; G0378

== ENCOUNTER → 2023-08-30 | Outpatient (CLI) | payer OTHER, SELFPAY ==
--- NOTE | 2023-08-30 07:27 | US_ITS ---
INDICATION: APL syndrome -- growth EXAMINATION: Ultrasound US OB Follow-Up TECHNIQUE: Transabdominal pelvic ultrasound was performed. COMPARISON: None. LMP: 01/08/2023 Beta-hCG: Unknown. Provided EGA: 33 weeks 3 days FINDINGS: INTRAUTERINE GESTATION(s): Single. ESTIMATED GESTATIONAL AGE: 33 weeks 4 days ESTIMATED DUE DATE (PORTER): 10/14/2023 HEART MOTION is 170 bpm. AMNIOTIC FLUID INDEX (TANO): 20.6 cm ESTIMATED WEIGHT: 2374 g or 5 lbs. 4 oz. Percentile 66%. BIOPHYSICAL PROFILE (BPP): Not assessed. PRESENTATION: Cephalic PLACENTA: Anterior. There is no placenta previa or abruption. CERVIX: The cervix is not visualized. US/OB Limited With Biometrics IMPRESSION: Single live intrauterine of 33 weeks 4 days. Electronically Signed: Cornel Pederson MD at 19:04 EST ,
--- OUTSIDE RECORDS SUMMARY | 2023-08-30 07:28 | XMS RPT_ITS | CCD ---
Author Name Unknown Address [address] [place] [address] Organization [facility] Care Team Providers Care Completion Supervisor Name Role Phone Unavailable Unavailable Unavailable NO, [...] Edwards MD Unavailable Phil Messer MD Unavailable [phone] SYEDA SHAVER Attending Unavailable SUSANNE LONG Referring Unavailable CASSIE YOUSSEF Referring Unavailable SUSANNE LONG Attending Unavailable CASSIE YOUSSEF Referring Unavailable SUSANNE LONG Attending Unavailable JOSE MEAD Referring Unavailable WARREN BRIONES Primary Care Unavailable PHIL MESSER Referring Unavailable JOSE MEAD Attending Unavailable WARREN BRIONES Primary Care Unavailable PHIL MESSER Referring Unavailable PHIL MESSER Attending Unavailable WARREN BRIONES [...] 98.8 [degF] Jose Mead MD Work Phone: [facility] 04-28-2023 08:20-0400 Body weight 67.13 kg Jose Mead MD Work Phone: [facility] 04-28-2023 08:20-0400 Diastolic blood pressure 80 mm[Hg] Jose Mead MD Work Phone: [facility] 04-28-2023 08:20-0400 Heart rate 85 /min Jose Meda MD Work Phone: [facility] 04-28-2023 08:20-0400 SaO2% (BldA) [Mass fraction] 100 % Jose Mead MD Work Phone: [facility] 04-28-2023 08:20-0400 Systolic blood pressure 124 mm[Hg] Jose Mead MD Work Phone: [facility] 02-10-2023 11:42-0400 Body temperature 99.3 [degF] Phil Messer MD Work Phone: [facility] 02-10-2023 11:42-0400 Body weight 65.55 kg Phil Messer MD Work Phone: [facility] 02-10-2023 11:42-0400 Diastolic blood pressure 80 mm[Hg] Phil Messer MD Work Phone: [facility] 02-10-2023 11:42-0400 Heart rate 84 /min Phil Messer MD Work Phone: [facility] 02-10-2023 11:42-0400 SaO2% (BldA) [Mass fraction] 97 % Phil Messer MD Work Phone: [facility] 02-10-2023 11:42-0400 Systolic blood pressure 120 mm[Hg] Phil Messer MD Work Phone: [facility] 11-21-2022 07:43-0400 Body height 157.5 cm Syeda Shaver [employer] SERVICE EMPLOYEE.[employer] Work Phone: [facility] 11-21-2022 07:43-0400 Body weight 65.32 kg Syeda Shaver [employer] SERVICE EMPLOYEE.[employer] Work Phone: [facility] 11-21-2022 07:43-0400 Diastolic blood pressure 70 mm[Hg] Syeda Shaver [employer] SERVICE EMPLOYEE.[employer] Work Phone: [facility] 11-21-2022 07:43-0400 Heart rate 78 /min Syeda Shaver [employer] SERVICE EMPLOYEE.[employer] Work Phone: [facility] 11-21-2022 07:43-0400 Respiratory rate 16 /min Syeda Shaver [employer] SERVICE EMPLOYEE.[employer] Work Phone: [facility] 11-21-2022 07:43-0400 Systolic blood pressure 118 mm[Hg] Syeda Shaver [employer] SERVICE EMPLOYEE.[employer] Work Phone: [facility] 10-25-2022 09:30-0400 Body height 155.6 cm Susanne Long MD Work Phone: [facility] 10-25-2022 09:30-0400 Body temperature 97.2 [degF] Susanne Long MD Work Phone: [facility] 10-25-2022 09:30-0400 Body weight 68.04 kg Susanne Long MD Work Phone: [facility] 10-25-2022 09:30-0400 Diastolic blood pressure 81 mm[Hg] Susanne Long MD Work Phone: [facility] 10-25-2022 09:30-0400 Heart rate 62 /min Susanne Long MD Work Phone: [facility] 10-25-2022 09:30-0400 Systolic blood pressure 124 mm[Hg] Susanne Long MD Work Phone: [facility] 10-24-2022 11:50-0400 Body height 155.6 cm Susanne Long MD Work Phone: [facility] 10-24-2022 11:50-0400 Body temperature 97 [degF] Susanne Long MD Work Phone: [facility] 10-24-2022 11:50-0400 Body weight 68.04 kg Susanne Long MD Work Phone: [facility] 10-24-2022 11:50-0400 Diastolic blood pressure 72 mm[Hg] Susanne Long MD Work Phone: [facility] 10-24-2022 11:50-0400 Heart rate 79 /min Susanne Long MD Work Phone: [facility] 10-24-2022 11:50-0400 Systolic blood pressure 113 mm[Hg] Susanne Long MD Work Phone: [facility] 07-29-2020 09:44-0500 BMI (Body Mass Index) 26.66 kg/m2 [facility] 07-29-2020 09:44-0500 Body Temperature 98.1 [degF] [facility] 07-29-2020 09:44-0500 Body weight 65.[address] [facility] 07-29-2020 09:44-0500 BP Diastolic 85 mm[Hg] [facility] 07-29-2020 09:44-0500 BP Systolic 128 mm[Hg] [facility] 07-29-2020 09:44-[address] [facility] 07-29-2020 09:44-0500 Pulse (Heart Rate) 73 /min [facility] 07-29-2020 09:44-0500 Pulse Oximetry 98 % [facility] 03-13-2020 10:01-0400 BMI (Body Mass Index) 24.69 [...] (Body Mass Index) 25.24 kg/m2 Trudy Michaud [facility] Work Phone: 03-31-2017 11:59-0400 Body Temperature 98.29 [degF] Trudy Michaud [facility] Work Phone: 03-31-2017 11:59-0400 BP Diastolic 79 mm[Hg] Trudy Michaud [facility] Work Phone: 03-31-2017 11:59-0400 BP Systolic 123 mm[Hg] Trudy Michaud [facility] Work Phone: 03-31-2017 11:59-0400 Height 157.5 cm Trudy Michaud [facility] Work Phone: 03-31-2017 11:59-0400 Pulse (Heart Rate) 51 /min Trudy Michaud [facility] Work Phone: 03-31-2017 11:59-0400 Pulse Oximetry 98 % Trudy Michaud [facility] Work Phone: 03-31-2017 11:59-0400 Respiratory Rate 18 /min Trudy Michaud [facility] Work Phone: 03-31-2017 11:59-0400 Weight 62.6 kg [facility]: Encounters Encounter Date Encounter Type Care Provider Facility Start: 04-28-2023 End: 04-29-2023 ambulatory JOSE MEAD Facility:[facility] Start: 04-28-2023 End: 04-28-2023 ambulatory Jose Mead MD Work Phone: Hematology/Oncology Procedures Date Procedure Procedure Detail Performing Clinician Start: 07-29-2020 Choriogonadotropin ( test) [Presence] in Urine Mo Valenzuela Work Phone: Plan of Treatment Date Care Activity Detail Author Start: 10-07-2031 Urine microalbumin profile [facility] Start: 11-22-2023 HPV TESTING HPV TESTING [facility] Immunizations Immunization Date Immunization Notes Care Provider Fa marvinty 10-06-2021 tetanus toxoid, reduced diphtheria toxoid, and acellular pertussis vaccine, adsorbed Syeda Shaver 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 2020 Private Health Insurance [id number] 2019 Unknown [facility] C[employer] [facility] xxxxxxxxx 2019-Present xxxxxxxxx [id number] 2019 Unknown [id number] 2019 Unknown [facility] [employer] [facility] [id number] 2019-Present [id number] 2013 Unknown [id number] 1988 Unknown [id number] 1988 Unknown [id number] 1988 Unknown [id number] Social History Date Type Detail Facility Start: 03-31-2017 End: 11-21-2022 Tobacco smoking status [facility] Never smoker [facility] Start: 1990 Sex Assigned At Not on file [facility] Work Phone: Start: 03-13-2020 End: 11-21-2022 Alcohol intake Current drinker of alcohol (finding) [facility] Start: 03-13-2020 End: 11-18-2022 History SDOH Alcohol Frequency 4 [facility] Start: 03-31-2017 Alcohol Comment occasionally [facility] Exposure to SARS-CoV -2 (event) Not sure [facility] Start: 07-29-2020 End: 11-21-2022 Tobacco use and exposure Never used [facility] Start: 11-21-2022 End: 12-15-2022 Alcohol intake [facility] Start: 11-18-2022 History SDOH Alcohol Std Drinks 1 [facility] Start: 11-18-2022 History SDOH Social Connections Phone 5 [facility] Start: 11-18-2022 History SDOH Social Connections Get Together 2 [facility] Start: 11-18-2022 History SDOH Social Connections Living 3 [facility] Start: 11-18-2022 History SDOH Physical Activity DPW 7 [facility] Start: 02-10-2023 End: 04-28-2023 Alcohol intake Ex-drinker (finding) [facility] Start: 11-18-2022 End: 12-15-2022 Social connection and isolation panel [facility] Do you belong to any clubs or organizations such as advent groups, unions, fraternal or athletic groups, or school groups? Yes [facility] Are you now , , , , never or living with a partner? [facility] How often to you hav e a drink containing alcohol? 2-3 time sa week [facility] How many standard dr inks containing alcohol do you have on a typical day? 1 or 2 [facility] How often do you hav e 6 or more drinks on 1 occasion? Never [facility] How hard is it for y ou to pay for the very basics like food, housing, medical care, and heating Not hard at all [facility] Do you feel stress - tense, restless, nervous, or anxious, or unable to sleep at night because your mind is troubled all the time - these days [OSQ] Not at all [facility] (I/We) worried wheth er (my/our) food would run out before (I/we) got money to buy more. Never true [facility] In the past 12 month s, was there a time when you were not able to pay the mortgage or rent on time? No [facility] Clinical Notes 10-25-2022 to 04-28-2023 Jose Mead MD - 04/28/2023 8:30 AM Jacqueline Messer MD - 02/10/2023 1:35 PM EDTTelephone Encounter - Katarina Leyv - 02/08/2023 1:12 PM Lulu Shaver APRN.CNS - 11/21/2022 7:40 AM EDT Note Date & Type Note Facility 04-28-2023 Note HNO ID: [id number] Author: Jose Mead MD Service: ? Author Type: Physician Type: Progress Notes Filed: 04/28/2023 4:05 PM Note Text: HISTORY OF PRESENT ILLNESS: Carol Werner is a 32 year old female h/o [...] which included preparing to see the patient, prgi-vm-sipl patient care, completing clinical documentation, obtaining and/or reviewing separately obtained history, counseling and educating the patient/family/caregiver, ordering medications, tests, or procedures, independently interpreting results (not separately reported), and communicating results to the patient/family/caregiver. Electronically Signed: Jose Mead MD April 28, 2023 8:30 AM [facility] 04-28-2023 History of Presen t illness Narrative HISTORY OF PRESENT ILLNESS: Carol Werner is a 32 year old female h/o [...] which included preparing to see the patient, [id number]-[id number] patient care, completing clinical documentation, obtaining and/or reviewing separately obtained history, counseling and educating the patient/family/caregiver, ordering medications, tests, or procedures, independently interpreting results (not separately reported), and communicating results to the patient/family/caregiver. Electronically Signed: Jose Mead MD April 28, 2023 8:30 AM documented in this encounter [facility] 02-10-2023 Note HNO ID: [id number] Author: Phil Messer MD Service: ? Author Type: Physician Type: Progress Notes Filed: 02/10/2023 1:45 PM Note Text: [facility] Progress Note SERVICE DATE: February 10, 2023 [...] Mood normal. Behavior: Behavior normal. IMPRESSION: Carol Werner is a 32 year old female who [...] Phil Messer MD cc: Warren Briones MD [facility] 02-10-2023 History of Presen t illness Narrative [facility] Progress Note SERVICE DATE: February 10, 2023 [...] Mood normal. Behavior: Behavior normal. IMPRESSION: Carol Werner is a 32 year old female who [...] Warren Briones MD documented in this encounter [facility] 02-08-2023 Miscellaneous Notes Pt scheduled as [...] thinners. Please advise. documented in this encounter [facility] 12-15-2022 Note HNO ID: [id number] Author: Phil Messer MD Service: ? Author Type: Physician Type: Progress Notes Filed: 12/15/2022 10:35 AM Note Text: [facility] Progress Note SERVICE DATE: December 15, 2022 [...] IgM <20 [facility] (H) IMPRESSION: Carol Werner is a 32 year old female with [...] Phil Messer MD cc: Warren Briones MD [facility] 12-08-2022 Miscellaneous Notes Spoke with patient and [...] scheduled pt with. documented in this encounter [facility] 11-21-2022 Note HNO ID: [id number] Author: Syeda Shaver APRN.[employer]IE CLEANER Service: ? Author Type: Nurse Specialist Type: Progress Notes Filed: 11/21/2022 8:15 AM Note Text: SUBJECTIVE: HEPATITIS B(1 of 3 - 3-dose series) Never done COVID-19 VACCINE(1) Never done HEPATITIS C SCREENING Never done HIV SCREENING Never done PAP TESTING Never done HPV TESTING Never done DEPRESSION ASSESSMENT Never done HPI Carol Werner is a 32 year old female. 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 Outside records: care everywhere Notes she is in her usual state of good health. Notes previous PCP was in [place], has been a little while since seen. [...] BSE 6-12 m (more content not included)... [facility] 11-21-2022 History of Presen t illness Narrative SUBJECTIVE: HEPATITIS B(1 of 3 - 3-dose series) Never done COVID-19 VACCINE(1) Never done HEPATITIS C SCREENING Never done HIV SCREENING Never done PAP TESTING Never done HPV TESTING Never done DEPRESSION ASSESSMENT Never done HPI Carol Werner is a 32 year old female. 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 Outside records: care everywhere Notes she is in her usual state of good health. Notes previous PCP was in [place], has been a little while since seen. [...] monthly BSE 6-12 mo follow up Warren Briones MD - to establish Syeda Shaver APRN.CNS Medical Decision Making: Problems: Low: Stable chronic illness Data: Unique test(s) ordered: 2 Risk: Low: Low risk from testing/treatment Medical Decision Making Level: 3 - Low documented in this encounter [facility] 10-25-2022 Note HNO ID: [id number] Author: Susanne Long MD Service: ? Author Type: Physician Type: Progress Notes Filed: 10/25/2022 5:24 PM Note Text: SERVICE DATE: October 25, 2022 CHIEF COMPLAINT: Carol Werner is a 31 year old female returning [...] Youssef No primary care provider on file. [facility] 10-25-2022 History of Presen t illness Narrative Images from the original note were not included. SERVICE DATE: October 25, 2022 CHIEF COMPLAINT: Carol Werner is a 31 year old female returning [...] in detail. Susanne Long MD cc: Cassie oYussef No primary care provider on file. documented in this encounter [facility] Diagnosis Hypercoagulable state (HCC)- Primary Primary hypercoagulable state [facility] Diagnosis Routine medical exam- Primary [...] of the cervix [facility] Diagnosis Hypercoagulable state (HCC)- Primary Primary hypercoagulable state [facility] Diagnosis Hypercoagulable state (HCC)- Primary Primary hypercoagulable state at early stage state, incidental [facility] Diagnosis Hypercoagulable state (HCC)- Primary Primary hypercoagulable state documented in this encounter [facility] Instructions * Patient Instructions - Trudy Michaud PA-C - 03/31/2017 12:40 PM EDT Bruises: Care Instructions Your Care Instructions Bruises occur when small blood vessels under the skin tear or rupture, most often from a twist, bump, or fall. Blood leaks into tissues under the skin and causes a tpijq-hye-mqpi spot that often turns colors, including purplish [...] your doctor if you can take an kogc-qbo-xhytcqp medicine. Put ice or a cold pack [...] Log into your personal health record on https://[place] city [place]-the [employer] and enter T177 in the Education box to learn more about Bruises: Care Instructions. Current as of: January 01, 2016 Content Version: 11.2 6986-9575 [employer]. Care instructions adapted under license by your healthcare professional. If you have questions about a medical condition or this instruction, always ask your healthcare professional. [employer] disclaims any warranty or liability for your [...] FoundDocuments on File Type Date Recorded Patient Staff Research Scientist Expl anation Advance Directives and Living Will [...] Valenzuela MD - 07/29/2020 9:49 AM EST MANAGER FEDERAL Progress Note: Subjective: Mrs Link is a [...] Hematological: Negative. Psychiatric/Behavioral: Negative. Pt declines a manager nicu for her pelvic exam today. Obstetrical History: [...] Hematological: Negative. Psychiatric/Behavioral: Negative. Pt declines a manager nicu for her pelvic exam today. documented in this encounter Reason for Referral Specialty Diagnoses / Procedures Referred By Osei hernandez Referred To Contact Hematology Diagnoses Hypercoagulable state (HCC) Procedures CONSULT TO HEMATOLOGY OFFICE/OUTPATIENT [facility] MDM 60-74 MINUTES Syeda Shaver, CARL.CONNIE CLEANER [address] [place] [address] Referral ID Status Reason Start Date Expiration Date Visits Requested Visits Authorized [id number] Authorized PCP Requested Referral 12/08/2022 12/08/2023 1 1 Additional Source Comments INFORMATION SOURCE (unrecogn ized section and content) DATE CREATED AUTHOR AUTHOR'S ORGANIZ ATION 08/02/2020 [facility] DATE CREATED AUTHOR AUTHOR'S ORGANIZ ATION 04/30/2023 [facility] Reason for Visit (unrecogniz ed section and content) Reason Comments 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 FEDERAL 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 Pt states that she h ad [...] or prosecute any alcohol or drug abuse patient.[facility] the event this information is protected by the Federal Confidentiality of Alcohol and Drug Abuse Patient Records regulations: The Federal rules restrict any use of the information to criminally investigate or prosecute any alcohol or drug abuse patient.[facility] the event this information is protected by the Federal Confidentiality of Alcohol and Drug Abuse Patient Records regulations: The Federal rules restrict any use of the information to criminally investigate or prosecute any alcohol or drug abuse patient.[facility] the event this information is protected by the Federal Confidentiality of Alcohol and Drug Abuse Patient Records regulations: The Federal rules restrict any use of the information to criminally investigate or prosecute any alcohol or drug abuse patient.[facility] the event this information is protected by the Federal Confidentiality of Alcohol and Drug Abuse Patient Records regulations: The Federal rules restrict any use of the information to criminally investigate or prosecute any alcohol or drug abuse patient.[facility] the event this information is protected by the Federal Confidentiality of Alcohol and Drug Abuse Patient Records regulations: The Federal rules restrict any use of the information to criminally investigate or prosecute any alcohol or drug abuse patient.[facility] the event this information is protected by the Federal Confidentiality of Alcohol and Drug Abuse Patient Records regulations: The Federal rules restrict any use of the information to criminally investigate or prosecute any alcohol or drug abuse patient.[facility] Care Teams (unrecognized sec tion and content) Completion Supervisor Relationship Specialty Start Date End Date Warren Briones MD [address] [place] [address] PCP - General Internal Medicine 11/21/22 Susanne Long MD [address] [place] [address] Oncology 12/08/22 12/08/22 Vincent Edwards MD [address] [address] Hematology/Oncology 12/08/22 12/08/22 Completion Supervisor Relationship Specialty Start Date End Date Warren Briones MD [address] [place] [address] PCP - General Internal Medicine 11/21/22 Phil Messer MD [address] [place] [address] Hematology/Oncology 12/15/22 Completion Supervisor Relationship Specialty Start Date End Date Warren Briones MD [address] [place], [place] [id number] PCP - General Internal Medicine 11/21/22 Phil Messer MD [address] [place], [place] [id number] Hematology/Oncology 12/15/22 Completion Supervisor Relationship Specialty Start Date End Date Warren Briones MD [address] [place], [place] [id number] PCP - General Internal Medicine 11/21/22 Phil Messer MD [address] [place], [place] [id number] Hematology/Oncology 12/15/22 FOR RECORDS PERTAINING TO PATIENTS [...] BE BASED ON THE PRIMARY CLINICAL RECORDS. [employer] [facility]. provides no warranty or guarantee of the accuracy or completeness of information in this document.
== END | disposition home or self-care (01) ==
LOC: US 07:26
PROVIDERS: PCP Internal Medicine; Referring Provider Obstetrics & Gynecology; Visit Provider Obstetrics & Gynecology
DX: D68.61 Antiphospholipid syndrome (principal)
CPT/HCPCS: 76816

== ENCOUNTER → 2023-09-20 | Outpatient (CLI) | payer OTHER, SELFPAY ==
--- OUTSIDE RECORDS SUMMARY | 2023-09-20 18:03 | XMS RPT_ITS | CCD ---
Author Name Unknown Address [address] [facility] [address] [place] [address] Organization [facility] Care Team Providers Care Tire Curer Name Role Phone Unavailable Unavailable Unavailable NO, [...] 98.8 [degF] Jose Mead MD Work Phone: [facility] 04-28-2023 08:20-0400 Body weight 67.13 kg Jose Mead MD Work Phone: [facility] 04-28-2023 08:20-0400 Diastolic blood pressure 80 mm[Hg] Jose Mead MD Work Phone: [facility] 04-28-2023 08:20-0400 Heart rate 85 /min Jose Mead MD Work Phone: [facility] 04-28-2023 08:20-0400 SaO2% (BldA) [Mass fraction] 100 % Jose Mead MD Work Phone: [facility] 04-28-2023 08:20-0400 Systolic blood pressure 124 mm[Hg] Jose Mead MD Work Phone: [facility] 02-10-2023 11:42-0400 Body temperature 99.3 [degF] Phil Messer MD Work Phone: [facility] 02-10-2023 11:42-0400 Body weight 65.55 kg Phil Messer MD Work Phone: [facility] 02-10-2023 11:42-0400 Diastolic blood pressure 80 mm[Hg] Phil Messer MD Work Phone: [facility] 02-10-2023 11:42-0400 Heart rate 84 /min Phil Messer MD Work Phone: [facility] 02-10-2023 11:42-0400 SaO2% (BldA) [Mass fraction] 97 % Phil Messer MD Work Phone: [facility] 02-10-2023 11:42-0400 Systolic blood pressure 120 mm[Hg] Phil Messer MD Work Phone: [facility] 11-21-2022 07:43-0400 Body height 157.5 cm Syeda Shaver ORDER EXPEDITER.[employer] Work Phone: [facility] 11-21-2022 07:43-0400 Body weight 65.32 kg Syeda Shaver ORDER EXPEDITER.[employer] Work Phone: [facility] 11-21-2022 07:43-0400 Diastolic blood pressure 70 mm[Hg] Syeda Shaver ORDER EXPEDITER.[employer] Work Phone: [facility] 11-21-2022 07:43-0400 Heart rate 78 /min Syeda Shaver ORDER EXPEDITER.[employer] Work Phone: [facility] 11-21-2022 07:43-0400 Respiratory rate 16 /min Syeda Shaver ORDER EXPEDITER.[employer] Work Phone: [facility] 11-21-2022 07:43-0400 Systolic blood pressure 118 mm[Hg] Syeda Shaver ORDER EXPEDITER.[employer] Work Phone: [facility] 10-25-2022 09:30-0400 Body height 155.6 cm Susanne Long MD Work Phone: [facility] 10-25-2022 09:30-0400 Body temperature 97.2 [degF] Susanne Long MD Work Phone: [facility] 10-25-2022 09:30-0400 Body weight 68.04 kg Susanne Long MD Work Phone: [facility] 10-25-2022 09:30-0400 Diastolic blood pressure 81 mm[Hg] Susanne Long MD Work Phone: [facility] 10-25-2022 09:30-0400 Heart rate 62 /min Susanne Long MD Work Phone: [facility] 10-25-2022 09:30-0400 Systolic blood pressure 124 mm[Hg] Susanne Long MD Work Phone: [facility] 10-24-2022 11:50-0400 Body height 155.6 cm Susanne Long MD Work Phone: [facility] 10-24-2022 11:50-0400 Body temperature 97 [degF] Susanne Long MD Work Phone: [facility] 10-24-2022 11:50-0400 Body weight 68.04 kg Susanne Long MD Work Phone: [facility] 10-24-2022 11:50-0400 Diastolic blood pressure 72 mm[Hg] Susanne Long MD Work Phone: [facility] 10-24-2022 11:50-0400 Heart rate 79 /min Susanne Long MD Work Phone: [facility] 10-24-2022 11:50-0400 Systolic blood pressure 113 mm[Hg] Susanne Long MD Work Phone: [facility] 07-29-2020 09:44-0500 BMI (Body Mass Index) 26.66 kg/m2 [facility] 07-29-2020 09:44-0500 Body Temperature 98.1 [degF] [facility] 07-29-2020 09:44-0500 Body weight 65.05 kg [facility] 07-29-2020 09:44-0500 BP Diastolic 85 mm[Hg] [facility] 07-29-2020 09:44-0500 BP Systolic 128 mm[Hg] [facility] 07-29-2020 09:44-0500 Height 156.2 cm [facility] 07-29-2020 09:44-0500 Pulse (Heart Rate) 73 /min [facility] 07-29-2020 09:44-0500 Pulse Oximetry 98 % [facility] 03-13-2020 10:01-0400 BMI (Body Mass Index) 24.69 kg/m2 [facility] 03-13-2020 10:01-0400 Body Temperature 98.49 [degF] [facility] 03-13-2020 10:01-0400 Body weight 60.24 kg [facility] 03-13-2020 10:01-0400 BP Diastolic 87 mm[Hg] [facility] 03-13-2020 10:01-0400 BP Systolic 128 mm[Hg] [facility] 03-13-2020 10:01-0400 Height 156.2 cm [facility] 03-13-2020 10:01-0400 Pulse (Heart Rate) 69 /min [facility] 03-13-2020 10:01-0400 Pulse Oximetry 98 % [facility] 03-13-2020 10:01-0400 Respiratory Rate 14 /min [facility] 03-31-2017 11:59-0400 BMI (Body Mass Index) 25.24 kg/m2 Trudy Michaud [facility] Work Phone: 03-31-2017 11:59-0400 Body Temperature 98.29 [degF] Trudy Michaud [facility] Work Phone: 03-31-2017 11:59-0400 BP Diastolic 79 mm[Hg] Trudy Michaud [facility] Work Phone: 03-31-2017 11:59-0400 BP Systolic 123 mm[Hg] Trudy Michaud [facility] Work Phone: 03-31-2017 11:59-0400 Height 157.5 cm Trudy Michaud [facility] Work Phone: 03-31-2017 11:59-0400 Pulse (Heart Rate) 51 /min Trudy Michaud [facility] Work Phone: 03-31-2017 11:59-0400 Pulse Oximetry 98 % Trudy Michaud [facility] Work Phone: 03-31-2017 11:59-0400 Respiratory Rate 18 /min Trudy Michaud [facility] Work Phone: 03-31-2017 11:59-0400 Weight 62.6 [facility]: Encounters Encounter Date Encounter Type Care Provider Facility Start: 04-28-2023 End: 04-29-2023 ambulatory JOSE MEAD Facility:[facility] Start: 04-28-2023 End: 04-28-2023 ambulatory Jose Mead MD Work Phone: Hematology/Oncology Procedures Date Procedure Procedure Detail Performing Clinician Start: 07-29-2020 Choriogonadotropin ( test) [Presence] in Urine Mo Valenzuela Work Phone: Plan of Treatment Date Care Activity Detail Author Start: 10-07-2031 Urine microalbumin profile [facility] Start: 11-22-2023 HPV TESTING HPV TESTING [facility] Immunizations Immunization Date Immunization Notes Care Provider Fa marvinty 10-06-2021 tetanus toxoid, reduced diphtheria toxoid, and acellular pertussis vaccine, adsorbed Syeda Shaver ORDER EXPEDITER.[facility] Work Phone: [facility] Work Phone: 05-14-2021 influenza, injectabl e, quadrivalent, preservative free Syeda Shaver ORDER EXPEDITER.[employer] Work Phone: [facility] Work Phone: 05-14-2021 influenza virus vaccine, unspecified formulation Jose Mead MD Work Phone: [facility] Payers Date Payer Category Payer Private Health Insurance [employer] C IGNA OAP [id number] 2020-Present [phone] [facility] [id number] [place] [address] Open Access [id number] 2020 Private Health Insurance [id number] 2019 Unknown [facility] CIGNA [facility] xxxxxxxxx 2019-Present xxxxxxxxx [id number] 2019 Unknown [id number] 2019 Unknown [facility] C[employer]NA [facility] [id number] 2019-Present [id number] 2013 Unknown [id number] 1988 Unknown [id number] 1988 Unknown [id number] 1988 Unknown [id number] Social History Date Type Detail Facility Start: 03-31-2017 End: 11-21-2022 Tobacco smoking status [facility] Never smoker [facility] Start: 1990 Sex Assigned At Not on file [facility] Work Phone: Start: 03-13-2020 End: 11-21-2022 Alcohol intake Current drinker of alcohol (finding) [facility] Start: 03-13-2020 End: 11-18-2022 History SDOH Alcohol Frequency 4 [facility] Start: 03-31-2017 Alcohol Comment occasionally [facility] Exposure to SARS-CoV -2 (event) Not sure [facility] Start: 07-29-2020 End: 11-21-2022 Tobacco use and exposure Never used [facility] Start: 11-21-2022 End: 12-15-2022 Alcohol intake [facility] Start: 11-18-2022 History SDOH Alcohol Std Drinks 1 [facility] Start: 11-18-2022 History SDOH Social Connections Phone 5 [facility] Start: 11-18-2022 History SDOH Social Connections Get Together 2 [facility] Start: 11-18-2022 History SDOH Social Connections Living 3 [facility] Start: 11-18-2022 History SDOH Physical Activity DPW 7 [facility] Start: 02-10-2023 End: 04-28-2023 Alcohol intake Ex-drinker (finding) [facility] Start: 11-18-2022 End: 12-15-2022 Social connection and isolation panel [facility] Do you belong to any clubs or organizations such as hoahaoism groups, unions, fraternal or athletic groups, or school groups? Yes [facility] Are you now , , , , never or living with a partner? [facility] How often to you hav e a drink containing alcohol? 2-3 time sa week [facility] How many standard dr inks containing alcohol do you have on a typical day? 1 or 2 [facility] How often do you hav e 6 or more drinks on 1 occasion? Never [facility] How hard is it for y ou to pay for the very basics like food, housing, medical care, and heating Not hard at all [facility] Do you feel stress - tense, restless, nervous, or anxious, or unable to sleep at night because your mind is troubled all the time - these days [OSQ] Not at all [facility] (I/We) worried wheth er (my/our) food would run out before (I/we) got money to buy more. Never true [facility] In the past 12 month s, was there a time when you were not able to pay the mortgage or rent on time? No [facility] Clinical Notes 10-25-2022 to 04-28-2023 Jose Mead MD - 04/28/2023 8:30 AM Jacqueline Messer MD - 02/10/2023 1:35 PM EDTTelephone Encounter - Katarina Levy - 02/08/2023 1:12 PM Lulu Shaver APRN.CNS - 11/21/2022 7:40 AM EDT Note Date & Type Note Facility 04-28-2023 Note HNO ID: [id number] Author: Jose Mead MD Service: ? Author [...] which included preparing to see the patient, [id number] patient care, completing clinical documentation, obtaining and/or reviewing separately obtained history, counseling and educating the patient/family/caregiver, ordering medications, tests, or procedures, independently interpreting results (not separately reported), and communicating results to the patient/family/caregiver. Electronically Signed: Jose Mead MD April 28, 2023 8:30 AM [facility] 04-28-2023 History of Presen t illness Narrative [...] which included preparing to see the patient, [id number] patient care, completing clinical documentation, obtaining and/or reviewing separately obtained history, counseling and educating the patient/family/caregiver, ordering medications, tests, or procedures, independently interpreting results (not separately reported), and communicating results to the patient/family/caregiver. Electronically Signed: Jose Mead MD April 28, 2023 8:30 AM documented in this encounter [facility] 02-10-2023 Note HNO ID: [id number] Author: Phil Messer MD Service: ? Author Type: Physician Type: Progress Notes Filed: 02/10/2023 1:45 PM Note Text: [facility] Progress Note SERVICE DATE: February 10, 2023 [...] Phil Messer MD cc: Warren Briones MD [facility] 02-10-2023 History of Presen t illness Narrative [facility] Progress Note SERVICE DATE: February 10, 2023 [...] Warren Briones MD documented in this encounter [facility] 02-08-2023 Miscellaneous Notes Pt scheduled as [...] thinners. Please advise. documented in this encounter [facility] 12-15-2022 Note HNO ID: [id number] Author: Phil Messer MD Service: ? Author Type: Physician Type: Progress Notes Filed: 12/15/2022 10:35 AM Note Text: [facility] Progress Note SERVICE DATE: December 15, 2022 [...] Phil Messer MD cc: Warren Briones MD [facility] 12-08-2022 Miscellaneous Notes Spoke with patient and [...] scheduled pt with. documented in this encounter [facility] 11-21-2022 Note HNO ID: [id number] Author: Syeda Shaver APRN.[employer] Service: ? Author Type: Nurse Specialist Type: [...] area Current PCP: Dr Brianne Lane [place] POULTRY TRIMMER: Earlene POULTRY TRIMMER: Dr Remington Jara [place] Labwork: 10/2022 ER/Hospitalization: 11/2021 [facility] Outside records: care everywhere Notes she is in her usual state of good health. Notes previous PCP was in [place], has been a little while since seen. [...] [facility] (H) Interpretation(Lupus Anticoagulant) Performing Pathologist: sIaiah Olivares MD, PhD . . . Depression [...] BSE 6-12 m (more content not included)... [facility] 11-21-2022 History of Presen t illness Narrative [...] area Current PCP: Dr Brianne Lane [place] POULTRY TRIMMER: Earlene POULTRY TRIMMER: Dr Remington Jara [place] Labwork: 10/2022 ER/Hospitalization: 11/2021 [facility] Outside records: care everywhere Notes she is in her usual state of good health. Notes previous PCP was in [place], has been a little while since seen. [...] 3 - Low documented in this encounter [facility] 10-25-2022 Note HNO ID: [id number] Author: Susanne Long MD Service: ? Author [...] Youssef No primary care provider on file. [facility] 10-25-2022 History of Presen t illness Narrative [...] provider on file. documented in this encounter [facility] Diagnosis Hypercoagulable state (HCC)- Primary Primary hypercoagulable state [facility] Diagnosis Routine medical exam- Primary [...] of the cervix [facility] Diagnosis Hypercoagulable state (HCC)- Primary Primary hypercoagulable state [facility] Diagnosis Hypercoagulable state (HCC)- Primary Primary hypercoagulable state at early stage state, incidental [facility] Diagnosis Hypercoagulable state (HCC)- Primary Primary hypercoagulable state documented in this encounter [facility] Instructions * Patient Instructions - Trudy Michaud PA-C - 03/31/2017 12:40 PM EDT Bruises: Care Instructions Your Care Instructions Bruises occur when small blood vessels under the skin tear or rupture, most often from a twist, bump, or fall. Blood leaks into tissues under the skin and causes a mkjxt-jcl-lvyl spot that often turns colors, including purplish [...] your doctor if you can take an wsaf-ieh-aeqolki medicine. Put ice or a cold pack [...] Log into your personal health record on [email or web address] and enter T177 in the Education box to learn more about Bruises: Care Instructions. Current as of: January 01, 2016 Content Version: 11.2 8829-7031 [employer]. Care instructions adapted under license by your healthcare professional. If you have questions about a medical condition or this instruction, always ask your healthcare professional. 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 Psychiatric/Behavioral: Negative. Pt declines a nuclear power plant engineer for her pelvic exam today. Obstetrical History: [...] Hematological: Negative. Psychiatric/Behavioral: Negative. Pt declines a nuclear power plant engineer for her pelvic exam today. documented in this encounter Reason for Referral Specialty Diagnoses / Procedures Referred By Osei hernandez Referred To Contact Hematology Diagnoses Hypercoagulable state (HCC) Procedures CONSULT TO HEMATOLOGY OFFICE/OUTPATIENT [facility] MDM 60-74 MINUTES Syeda Shaver, CARL.[employer] [address] [place] [address] Referral ID Status Reason Start Date Expiration Date Visits Requested Visits Authorized [id number] Authorized PCP Requested Referral 12/08/2022 12/08/2023 1 1 Additional Source Comments INFORMATION SOURCE (unrecogn ized section and content) DATE CREATED AUTHOR AUTHOR'S ORGANIZ ATION 08/02/2020 [facility] DATE CREATED AUTHOR AUTHOR'S ORGANIZ ATION 04/30/2023 [facility] Reason for Visit (unrecogniz ed section and content) 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 Pt states that she h ad [...] documented in this encounter Addended by: MO VALENZULEA on: 07/29/2020 10:13 AM Modules accepted: Level of Service documented in this encounter Source Comments (unrecognize d section and content) In the event this informatio n is protected by the Federal Confidentiality of Alcohol and Drug Abuse Patient Records regulations: The Federal rules restrict any use of the information to criminally investigate or prosecute any alcohol or drug abuse patient.[facility] the event this information is protected by the Federal Confidentiality of Alcohol and Drug Abuse Patient Records regulations: The Federal rules restrict any use of the information to criminally investigate or prosecute any alcohol or drug abuse patient.[facility] the event this information is protected by the Federal Confidentiality of Alcohol and Drug Abuse Patient Records regulations: The Federal rules restrict any use of the information to criminally investigate or prosecute any alcohol or drug abuse patient.[facility] the event this information is protected by the Federal Confidentiality of Alcohol and Drug Abuse Patient Records regulations: The Federal rules restrict any use of the information to criminally investigate or prosecute any alcohol or drug abuse patient.[facility] the event this information is protected by the Federal Confidentiality of Alcohol and Drug Abuse Patient Records regulations: The Federal rules restrict any use of the information to criminally investigate or prosecute any alcohol or drug abuse patient.[facility] the event this information is protected by the Federal Confidentiality of Alcohol and Drug Abuse Patient Records regulations: The Federal rules restrict any use of the information to criminally investigate or prosecute any alcohol or drug abuse patient.[facility] the event this information is protected by the Federal Confidentiality of Alcohol and Drug Abuse Patient Records regulations: The Federal rules restrict any use of the information to criminally investigate or prosecute any alcohol or drug abuse patient.[facility] Care Teams (unrecognized sec tion and content) Tire Curer Relationship Specialty Start Date End Date Warren Briones MD [address] [place] [address] PCP - General Internal Medicine 11/21/22 Susanne Long MD [address] [place] [address] Oncology 12/08/22 12/08/22 Vincent Edwards MD [address] [place] [address] Hematology/Oncology 12/08/22 12/08/22 Tire Curer Relationship Specialty Start Date End Date Warren Briones MD [address] [place] [address] PCP - General Internal Medicine 11/21/22 Phil Messer MD [address] [place] [address] Hematology/Oncology 12/15/22 Tire Curer Relationship Specialty Start Date End Date Warren Briones MD [address] [place], [place] [address] PCP - General Internal Medicine 11/21/22 Phil Messer MD [address] [place], [place] [id number] Hematology/Oncology 12/15/22 Tire Curer Relationship Specialty Start Date End Date Warren Briones MD [address] [place], [place] [id number] PCP - General Internal Medicine 11/21/22 Phil Messer MD [address] [place], [place] [id number] Hematology/Oncology 12/15/22 FOR RECORDS PERTAINING TO PATIENTS [...] BE BASED ON THE PRIMARY CLINICAL RECORDS. [employer] [facility]. provides no warranty or guarantee of the accuracy or completeness of information in this document.
== END | disposition home or self-care (01) ==
LOC: LABSPEC 14:22
PROVIDERS: PCP Internal Medicine; Referring Provider Obstetrics & Gynecology; Visit Provider Obstetrics & Gynecology
DX: O09.92 Supervision of high risk pregnancy, unspecified, second trimester (principal); Z3A.00 Weeks of gestation of pregnancy not specified
CPT/HCPCS: 87081

== ENCOUNTER → 2023-09-28 | Outpatient (CLI) | payer OTHER, SELFPAY ==
--- NOTE | 2023-09-28 12:28 | US_ITS ---
STUDY: SECOND AND THIRD TRIMESTER OBSTETRICAL ULTRASOUND - LIMITED REASON FOR EXAM: Female, 32 years old , evaluate growth, history of APL syndrome LMP: 01/08/2023 PRIOR ULTRASOUND: Prior study dated: 08/30/2023 TECHNIQUE: Transabdominal TECHNICAL QUALITY: Adequate. FINDINGS: There is a single intrauterine fetus. The fetus is in a cephalic presentation. There is demonstrated cardiac activity with a heart rate of 158 bpm. There is a normal amniotic fluid volume. The largest amniotic fluid pocket measures 6.2 cm. The amniotic fluid index (TANO) is 19.8 cm. The placenta is anterior in location and is not low lying. There are Grade 2 placental changes. The cervix is not visualized. BIOMETRY: BPD: 8.9 cm: 36 weeks, 1 days HC: 33.5 cm: 38 weeks, 2 days AC: 34.3 cm: 38 weeks, 1 days FL: 7.3 cm: 37 weeks, 1 days Age by LMP: 37 weeks, 4 days. PORTER by LMP: 10/15/2023. age by prior US: 37 weeks, 5 days. PORTER by prior US: 10/14/2023. age by current US: 37 weeks, 3 days. PORTER by current US: 10/16/2023. Estimated weight: 3277 grams, +/- 492 grams, 62 percentile. anatomy is not evaluated at this time. US/OB Limited With Biometrics IMPRESSION: Single live intrauterine fetus with an estimated gestational age of 37 weeks and 3 days. The PORTER is 10/16/2023. Electronically Signed: Figueroa Rosales MD at 13:58 EST ,
--- OUTSIDE RECORDS SUMMARY | 2023-09-28 12:48 | XMS RPT_ITS | CCD ---
Author Name Unknown Address [address] [place] [address] Organization [facility] Care Team Providers Care Sample Cutter Name Role Phone Unavailable Unavailable Unavailable NO, [...] 98.8 [degF] Jose Mead MD Work Phone: [facility] 04-28-2023 08:20-0400 Body weight 67.13 kg Jose Mead MD Work Phone: [facility] 04-28-2023 08:20-0400 Diastolic blood pressure 80 mm[Hg] Jose Mead MD Work Phone: [facility] 04-28-2023 08:20-0400 Heart rate 85 /min Jose Mead MD Work Phone: [facility] 04-28-2023 08:20-0400 SaO2% (BldA) [Mass fraction] 100 % Jose Mead MD Work Phone: [facility] 04-28-2023 08:20-0400 Systolic blood pressure 124 mm[Hg] Jose Mead MD Work Phone: [facility] 02-10-2023 11:42-0400 Body temperature 99.3 [degF] Phil Messer MD Work Phone: [facility] 02-10-2023 11:42-0400 Body weight 65.55 kg Phil Messer MD Work Phone: [facility] 02-10-2023 11:42-0400 Diastolic blood pressure 80 mm[Hg] Phil Messer MD Work Phone: [facility] 02-10-2023 11:42-0400 Heart rate 84 /min Phil Messer MD Work Phone: [facility] 02-10-2023 11:42-0400 SaO2% (BldA) [Mass fraction] 97 % Phil Messer MD Work Phone: [facility] 02-10-2023 11:42-0400 Systolic blood pressure 120 mm[Hg] Phil Messer MD Work Phone: [facility] 11-21-2022 07:43-0400 Body height 157.5 cm Syeda Shaver TEA BAG MACHINE TENDER.FINAL INSTALLER INSPECTOR Work Phone: [facility] 11-21-2022 07:43-0400 Body weight 65.32 kg Syeda Shaver TEA BAG MACHINE TENDER.FINAL INSTALLER INSPECTOR Work Phone: [facility] 11-21-2022 07:43-0400 Diastolic blood pressure 70 mm[Hg] Syeda Shaver TEA BAG MACHINE TENDER.FINAL INSTALLER INSPECTOR Work Phone: [facility] 11-21-2022 07:43-0400 Heart rate 78 /min Syeda Shaver TEA BAG MACHINE TENDER.FINAL INSTALLER INSPECTOR Work Phone: [facility] 11-21-2022 07:43-0400 Respiratory rate 16 /min Syeda Shaver TEA BAG MACHINE TENDER.FINAL INSTALLER INSPECTOR Work Phone: [facility] 11-21-2022 07:43-0400 Systolic blood pressure 118 mm[Hg] Syeda Shaver TEA BAG MACHINE TENDER.FINAL INSTALLER INSPECTOR Work Phone: [facility] 10-25-2022 09:30-0400 Body height 155.6 cm Susanne Long MD Work Phone: [facility] 10-25-2022 09:30-0400 Body temperature 97.2 [degF] Susanne Long MD Work Phone: [facility] 10-25-2022 09:30-0400 Body weight 68.04 kg Susanne Long MD Work Phone: [facility] 10-25-2022 09:30-0400 Diastolic blood pressure 81 mm[Hg] Susanne Long MD Work Phone: [facility] 10-25-2022 09:30-0400 Heart rate 62 /min Susanne Long MD Work Phone: [facility] 10-25-2022 09:30-0400 Systolic blood pressure 124 mm[Hg] Susanne Long MD Work Phone: [facility] 10-24-2022 11:50-0400 Body height 155.6 cm Susanne Long MD Work Phone: [facility] 10-24-2022 11:50-0400 Body temperature 97 [degF] Susanne Long MD Work Phone: [facility] 10-24-2022 11:50-0400 Body weight 68.04 kg Susanne Long MD Work Phone: [facility] 10-24-2022 11:50-0400 Diastolic blood pressure 72 mm[Hg] Susanne Long MD Work Phone: [facility] 10-24-2022 11:50-0400 Heart rate 79 /min Susanne Long MD Work Phone: [facility] 10-24-2022 11:50-0400 Systolic blood pressure 113 mm[Hg] Susanne Long MD Work Phone: [facility] 07-29-2020 09:44-0500 BMI (Body Mass Index) 26.66 kg/m2 [facility] 07-29-2020 09:44-0500 Body Temperature 98.1 [degF] [facility] 07-29-2020 09:44-0500 Body weight 65.05 kg [facility] 07-29-2020 09:44-0500 BP Diastolic 85 mm[Hg] [facility] 07-29-2020 09:44-0500 BP Systolic 128 mm[Hg] [facility] 07-29-2020 09:44-0500 Height 156.2 cm [facility] 07-29-2020 09:44-0500 Pulse (Heart Rate) 73 /min [facility] 07-29-2020 09:44-0500 Pulse Oximetry 98 % [facility] 03-13-2020 10:01-0400 BMI (Body Mass Index) 24.69 kg/m2 [facility] 03-13-2020 10:01-0400 Body Temperature 98.49 [degF] [facility] 03-13-2020 10:01-0400 Body weight 60.24 kg [facility] 03-13-2020 10:01-0400 BP Diastolic 87 mm[Hg] [facility] 03-13-2020 10:01-0400 BP Systolic 128 mm[Hg] [facility] 03-13-2020 10:01-0400 Height 156.2 cm [facility] 03-13-2020 10:01-0400 Pulse (Heart Rate) 69 /min [facility] 03-13-2020 10:01-0400 Pulse Oximetry 98 % [facility] 03-13-2020 10:01-0400 Respiratory Rate 14 /min [facility] 03-31-2017 11:59-0400 BMI (Body Mass Index) 25.24 kg/m2 Trudy Michaud [facility] Work Phone: 03-31-2017 11:59-0400 Body Temperature 98.29 [degF] Trudy Michaud [facility] Work Phone: 03-31-2017 11:59-0400 BP Diastolic 79 mm[Hg] Trudy Michaud [facility] Work Phone: 03-31-2017 11:59-0400 BP Systolic 123 mm[Hg] Trudy Michaud [facility] Work Phone: 03-31-2017 11:59-0400 Height 157.5 cm Trudy Michaud [facility] Work Phone: 03-31-2017 11:59-0400 Pulse (Heart Rate) 51 /min Trudy Michaud [facility] Work Phone: 03-31-2017 11:59-0400 Pulse Oximetry 98 % Trudy Michaud [facility] Work Phone: 03-31-2017 11:59-0400 Respiratory Rate 18 /min Trudy Michaud [facility] Work Phone: 03-31-2017 11:59-0400 [facility] 62[facility]6 [facility] En[facility]ters Encounter Date Encounter Type Care Provider Facility Start: 04-28-2023 End: 04-29-2023 ambulatory JOSE MEAD Facility:[facility] Start: 04-28-2023 End: 04-28-2023 ambulatory Jose Mead MD Work Phone: Hematology/Oncology Procedures Date Procedure Procedure Detail Performing Clinician Start: 07-29-2020 Choriogonadotropin ( test) [Presence] in Urine Mo Valenzuela Work Phone: Plan of Treatment Date Care Activity Detail Author Start: 10-07-2031 Urine microalbumin profile [facility] Start: 11-22-2023 HPV TESTING HPV TESTING [facility] Immunizations Immunization Date Immunization Notes Care Provider Fa marvinty 10-06-2021 tetanus toxoid, reduced diphtheria toxoid, and acellular pertussis vaccine, adsorbed Syeda Shaver TEA BAG MACHINE TENDER.[facility] Work Phone: [facility] Work Phone: 05-14-2021 influenza, injectabl e, quadrivalent, preservative free Syeda Shaver TEA BAG MACHINE TENDER.FINAL INSTALLER INSPECTOR Work Phone: [facility] Work Phone: 05-14-2021 influenza virus vaccine, unspecified formulation Jose Mead MD Work Phone: [facility] Payers Date Payer Category Payer Private Health Insurance [employer] C IGNA OAP [id number] 2020-Present [phone] [facility] [id number] [place] [address] Open Access [id number] 2020 Private Health Insurance [id number] 2019 Unknown [facility] CIGNA [facility] xxxxxxxxx 2019-Present xxxxxxxxx [id number] 2019 Unknown [id number] 2019 Unknown [facility] C[employer]NA [facility] [id number] 2019-Present [id number] 2013 Unknown [id number] 1988 Unknown [id number] 1988 Unknown [id number] 1988 Unknown [id number] Social History Date Type Detail Facility Start: 03-31-2017 End: 11-21-2022 Tobacco smoking status [facility] Never smoker [facility] Start: 1990 Sex Assigned At Not on file [facility] Work Phone: Start: 03-13-2020 End: 11-21-2022 Alcohol intake Current drinker of alcohol (finding) [facility] Start: 03-13-2020 End: 11-18-2022 History SDOH Alcohol Frequency 4 [facility] Start: 03-31-2017 Alcohol Comment occasionally [facility] Exposure to SARS-CoV -2 (event) Not sure [facility] Start: 07-29-2020 End: 11-21-2022 Tobacco use and exposure Never used [facility] Start: 11-21-2022 End: 12-15-2022 Alcohol intake [facility] Start: 11-18-2022 History SDOH Alcohol Std Drinks 1 [facility] Start: 11-18-2022 History SDOH Social Connections Phone 5 [facility] Start: 11-18-2022 History SDOH Social Connections Get Together 2 [facility] Start: 11-18-2022 History SDOH Social Connections Living 3 [facility] Start: 11-18-2022 History SDOH Physical Activity DPW 7 [facility] Start: 02-10-2023 End: 04-28-2023 Alcohol intake Ex-drinker (finding) [facility] Start: 11-18-2022 End: 12-15-2022 Social connection and isolation panel [facility] Do you belong to any clubs or organizations such as jain groups, unions, fraternal or athletic groups, or school groups? Yes [facility] Are you now , , , , never or living with a partner? [facility] How often to you hav e a drink containing alcohol? 2-3 time sa week [facility] How many standard dr inks containing alcohol do you have on a typical day? 1 or 2 [facility] How often do you hav e 6 or more drinks on 1 occasion? Never [facility] How hard is it for y ou to pay for the very basics like food, housing, medical care, and heating Not hard at all [facility] Do you feel stress - tense, restless, nervous, or anxious, or unable to sleep at night because your mind is troubled all the time - these days [OSQ] Not at all [facility] (I/We) worried wheth er (my/our) food would run out before (I/we) got money to buy more. Never true [facility] In the past 12 month s, was there a time when you were not able to pay the mortgage or rent on time? No [facility] Clinical Notes 10-25-2022 to 04-28-2023 Jose Mead MD - 04/28/2023 8:30 AM Jacqueline Messer MD - 02/10/2023 1:35 PM EDTTelephone Encounter - Katarina Levy - 02/08/2023 1:12 PM Lulu Shaver APRN.CNS - 11/21/2022 7:40 AM EDT Note Date & Type Note Facility 04-28-2023 Note HNO ID: [id number] Author: Jose Mead MD Service: ? Author [...] which included preparing to see the patient, [id number] patient care, completing clinical documentation, obtaining and/or reviewing separately obtained history, counseling and educating the patient/family/caregiver, ordering medications, tests, or procedures, independently interpreting results (not separately reported), and communicating results to the patient/family/caregiver. Electronically Signed: Jose Mead MD April 28, 2023 8:30 AM [facility] 04-28-2023 History of Presen t illness [...] which included preparing to see the patient, [id number]-[id number] patient care, completing clinical documentation, obtaining and/or reviewing separately obtained history, counseling and educating the patient/family/caregiver, ordering medications, tests, or procedures, independently interpreting results (not separately reported), and communicating results to the patient/family/caregiver. Electronically Signed: Jose Mead MD April 28, 2023 8:30 AM documented in this encounter [facility] 02-10-2023 Note HNO ID: [id number] Author: Phil Messer MD Service: ? Author Type: Physician Type: Progress Notes Filed: 02/10/2023 1:45 PM Note Text: [facility] Progress Note SERVICE DATE: February 10, 2023 [...] Phil Messer MD cc: Warren Briones MD [facility] 02-10-2023 History of Presen t illness Narrative [facility] Progress Note SERVICE DATE: February 10, 2023 [...] Warren Briones MD documented in this encounter [facility] 02-08-2023 Miscellaneous Notes Pt scheduled as directed [...] thinners. Please advise. documented in this encounter [facility] 12-15-2022 Note HNO ID: [id number] Author: Phil Messer MD Service: ? Author Type: Physician Type: Progress Notes Filed: 12/15/2022 10:35 AM Note Text: [facility] Progress Note SERVICE DATE: December 15, 2022 [...] Phil Messer MD cc: Warren Briones MD [facility] 12-08-2022 Miscellaneous Notes Spoke with patient [...] scheduled pt with. documented in this encounter [facility] 11-21-2022 Note HNO ID: [id number] Author: Syeda Shaver APRN.FINAL INSTALLER INSPECTOR Service: ? Author Type: Nurse Specialist Type: [...] area Current PCP: Dr Brianne Lane [place] TAIL DOGGER: Earlene TAIL DOGGER: Dr Remington Jara [place] Labwork: 10/2022 ER/Hospitalization: 11/2021 [facility] Outside records: care everywhere Notes she is in her usual state of good health. Notes previous PCP was in [place], has been a little while since seen. [...] BSE 6-12 m (more content not included)... [facility] 11-21-2022 History of Presen t illness [...] area Current PCP: Dr Brianne Lane [place] TAIL DOGGER: Earlene TAIL DOGGER: Dr Remington Jara [place] Labwork: 10/2022 ER/Hospitalization: 11/2021 [facility] Outside records: care everywhere Notes she is in her usual state of good health. Notes previous PCP was in [place], has been a little while since seen. [...] 3 - Low documented in this encounter [facility] 10-25-2022 Note HNO ID: [id number] Author: Susanne Long MD Service: ? Author [...] and these were answered in detail. Susanne Logn MD cc: Cassie Youssef No primary care provider on file. [facility] 10-25-2022 History of Presen t illness [...] provider on file. documented in this encounter [facility] documented [facility] Diagnosis Hypercoagulable state (HCC)- Primary Primary hypercoagulable state [facility] Diagnosis Routine medical exam- Primary Routine [...] of the cervix [facility] Diagnosis Hypercoagulable state (HCC)- Primary Primary hypercoagulable state [facility] Diagnosis Hypercoagulable state (HCC)- Primary Primary hypercoagulable state at early stage state, incidental [facility] Diagnosis Hypercoagulable state (HCC)- Primary Primary hypercoagulable state documented in this encounter [facility] Instructions * Patient Instructions - Trudy Michaud PA-C - 03/31/2017 12:40 PM EDT Bruises: Care Instructions Your Care Instructions Bruises occur when small blood vessels under the skin tear or rupture, most often from a twist, bump, or fall. Blood leaks into tissues under the skin and causes a orlhi-bnm-huus spot that often turns colors, including purplish [...] your doctor if you can take an jjta-sha-cclgvox medicine. Put ice or a cold pack [...] Log into your personal health record on [email or web address] and enter T177 in the Education box to learn more about Bruises: Care Instructions. Current as of: January 01, 2016 Content Version: 11.2 [id number] [employer] Care instructions adapted under license by your healthcare professional. If you have questions about a medical condition or this instruction, always ask your healthcare professional. [employer] disclaims any warranty or liability for your [...] FoundDocuments on File Type Date Recorded Patient Stock Broker Expl anation Advance Directives and Living Will [...] Valenzuela MD - 07/29/2020 9:49 AM EST CASE MANAGEMENT SOCIAL WORKER Progress Note: Subjective: Mrs Link is a [...] Hematological: Negative. Psychiatric/Behavioral: Negative. Pt declines a powder truck driver for her pelvic exam today. Obstetrical History: [...] Hematological: Negative. Psychiatric/Behavioral: Negative. Pt declines a powder truck driver for her pelvic exam today. documented in this encounter Reason for Referral Specialty Diagnoses / Procedures Referred By Osei hernandez Referred To Contact Hematology Diagnoses Hypercoagulable state (HCC) Procedures CONSULT TO HEMATOLOGY OFFICE/OUTPATIENT [facility] MDM 60-74 MINUTES Syeda Shaver, CARL.FINAL INSTALLER INSPECTOR [address] [place] [address] Referral ID Status Reason Start Date Expiration Date Visits Requested Visits Authorized [id number] Authorized PCP Requested Referral 12/08/2022 12/08/2023 1 1 Additional Source Comments INFORMATION SOURCE (unrecogn ized section and content) DATE CREATED AUTHOR AUTHOR'S ORGANIZ ATION 08/02/2020 [facility] DATE CREATED AUTHOR AUTHOR'S ORGANIZ ATION 04/30/2023 [facility] Reason for Visit (unrecogniz ed section and content) Reason Comments CASE MANAGEMENT SOCIAL WORKER Problem Pt states that she h ad [...] or prosecute any alcohol or drug abuse patient.[facility] the event this information is protected by the Federal Confidentiality of Alcohol and Drug Abuse Patient Records regulations: The Federal rules restrict any use of the information to criminally investigate or prosecute any alcohol or drug abuse patient.[facility] the event this information is protected by the Federal Confidentiality of Alcohol and Drug Abuse Patient Records regulations: The Federal rules restrict any use of the information to criminally investigate or prosecute any alcohol or drug abuse patient.[facility] the event this information is protected by the Federal Confidentiality of Alcohol and Drug Abuse Patient Records regulations: The Federal rules restrict any use of the information to criminally investigate or prosecute any alcohol or drug abuse patient.[facility] the event this information is protected by the Federal Confidentiality of Alcohol and Drug Abuse Patient Records regulations: The Federal rules restrict any use of the information to criminally investigate or prosecute any alcohol or drug abuse patient.[facility] the event this information is protected by the Federal Confidentiality of Alcohol and Drug Abuse Patient Records regulations: The Federal rules restrict any use of the information to criminally investigate or prosecute any alcohol or drug abuse patient.[facility] System[facility] the event this information is protected by the Federal Confidentiality of Alcohol and Drug Abuse Patient Records regulations: The Federal rules restrict any use of the information to criminally investigate or prosecute any alcohol or drug abuse patient.[facility] Care Teams (unrecognized sec tion and content) Sample Cutter Relationship Specialty Start Date End Date Warren Briones MD [address] [place] [address] PCP - General Internal Medicine 11/21/22 Susanne Long MD [address] [place] [address] Oncology 12/08/22 12/08/22 Vincent Edwards MD [address] [place] [address] Hematology/Oncology 12/08/22 12/08/22 Sample Cutter Relationship Specialty Start Date End Date Warren Briones MD [address] [place] [address] PCP - General Internal Medicine 11/21/22 Phil Messer MD [address] [place] [address] Hematology/Oncology 12/15/22 Sample Cutter Relationship Specialty Start Date End Date Warren Briones MD [address], [place] [id number] PCP - General Internal Medicine 11/21/22 Phil Messer MD [address] [place], [place] [id number] Hematology/Oncology 12/15/22 Sample Cutter Relationship Specialty Start Date End Date Warren Briones MD [address], [place] [id number] PCP - General Internal Medicine 11/21/22 Phil Messer MD [address] [place], [place] [id number] Hematology/Oncology 12/15/22 FOR RECORDS PERTAINING TO PATIENTS [...] BE BASED ON THE PRIMARY CLINICAL RECORDS. [employer] [facility]. provides no warranty or guarantee of the accuracy or completeness of information in this document.
== END | disposition home or self-care (01) ==
PROVIDERS: PCP Internal Medicine; Referring Provider Obstetrics & Gynecology; Visit Provider Obstetrics & Gynecology
DX: O09.92 Supervision of high risk pregnancy, unspecified, second trimester (principal); D68.61 Antiphospholipid syndrome; O99.112 Other diseases of the blood and blood-forming organs and certain disorders involving the immune mechanism complicating pregnancy, second trimester; Z3A.00 Weeks of gestation of pregnancy not specified
CPT/HCPCS: 76816

== ENCOUNTER 2023-10-09 09:50 | Inpatient (IN) | payer OTHER, SELFPAY ==
[2023-10-09] VITALS (47 sets, daily range): BP systolic 89–133; BP diastolic 57–97; PULSE 59–80; RESP 13–21; TEMP 36.3–36.7; O2SAT 95–100; BMI 33.0
--- NOTE | 2023-10-09 | FALS_PTH ---
PATHOLOGY RESULTS PATIENT: NATALEE WERNER LOC: WP U#:[id number] AGE/SX: 32/F ROOM: WP008 RE10/09/[address]: Dr. Lucy Yates DO : 1990 BED: 1 DIS: 10/10/2023 SPEC #: [id number] RECD: 10/09/23 16:44 STATUS: ANATOLY NING #: [id number] JERARDO: 10/09/23 00:[address]: Lucy Yates DEPT: SURGICAL PATHOLOGY RECD BY: Roberto Manzanares ENTERED: 10/10/23 08:59 SP TYPE: FALL TUBES OTHR DR: Dr. Jenny Briones MD Tissues: Fallopian tube Procedures: Surgery Specimen Level II Surgery Specimen Level IV HEADER OPERATION: Tubal ligation PRE-OP DIAGNOSIS: Sterilization TISSUE SUBMITTED: Fallopian tubes MICROSCOPIC DIAGNOSIS Right fallopian tube, salpingectomy: No pathologic change. Left fallopian tube, salpingectomy: Benign paratubal cyst. AM:serena 10/11/2023 MICROSCOPIC DESCRIPTION Slides are reviewed. GROSS DESCRIPTION Received in fixative is one container labeled with the patient's name and designated bilateral fallopian tubes. The specimen consists of bilateral fallopian tubes including fimbrial ends. The right fallopian tube measures 7.5 cm in length and 1.0 cm in diameter and the left fallopian tube measures 7.5 cm in length and 0.5 cm in diameter. The left fallopian tube also shows a paratubal cyst measuring 1.2 cm in greatest dimension. It is filled with clear fluid. Sections reveal unremarkable cut surfaces. General Repairer sections are submitted in two cassettes as follows: 1 - right fallopian tube, 2 - left fallopian tube and paratubal cyst. / SJ:serena 10/10/2023 TC:5 CPT: 98966, 81463
[2023-10-09] MEDS: Acetaminophen 500 MG Tablet 1000 MG PO ×3 (10:30→22:38)
[2023-10-09] MEDS: Lactated Ringers 1,000 ML 999 ML IV (10:30)
[2023-10-09 10:37] LABS: Absolute Lymphocyte Count 1.67 X10^3/uL (0.83-4.51); Absolute Neutrophil Count 5.6 X10^3/uL (2.0-7.7); Basophil# 0.02 X10^3/uL; Basophil% 0.2 % (0-1); Eosinophil# 0.03 X10^3/uL; Eosinophils% 0.4 % (0-5); Hematocrit 40.7 % (37-47); Hemoglobin 13.6 g/dL (12.0-15.0); Lymphocyte # 1.67 X10^3/ul (0.83-4.51); Lymphocyte % 20.5 % (19-41); Mean Corp Hgb Conc 33.4 g/dL (32-36); Mean Corpuscular Hgb 31.2 pg (27.0-32.0); Mean Corpuscular Volume 93.3 fL (81-99); Mean Platelet Vol. 11.4 fl (6.2-12.0); Monocyte% 9.8 % (0-10); NRBC Flagged by Analyzer 0 % (0-5); Neutrophil # 5.59 X10^3/uL (2.7-7.7); Neutrophil % 68.7 % (47-70); Platelet Count 147 K/mm3 (150-450); RBC Distribution Width CV 13.2 % (11.6-14.6); RBC Distribution Width SD 45.2 fl (35.1-43.9); Red Blood Count 4.36 M/mm3 (4.2-5.4); White Blood Count 8.1 K/mm3 (4.4-11.0)
[2023-10-09] MEDS: Lactated Ringers 1,000 ML 150 ML IV (11:10)
--- NOTE | 2023-10-09 11:23 | HP.PCM.OB_ITS ---
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 Estimated Delivery Date Method Current WG Current Estimate 10/15/23 LMP (Certain) 39w 1d PFSH PFS Medical History Abnormal Papanicolaou smear of cervix with positive human papilloma virus (HPV) test APS (antiphospholipid syndrome) Home Medications qbzmjugx-kod-Tj-FA 1 mg tablet 1 tab PO DAILY 07/13/21 [History Last Taken 11/15/21] enoxaparin 40 mg/0.4 mL subcutaneous syringe 40 mg (0.4 mL) subcut DAILY 30 days #12 mL 09/18/23 [Rx Last Taken Unknown] Allergy/AdvReac Type Severity Reaction Status Date / Time No Known Allergies Allergy Verified 10/04/23 09:02 Family History Grandmother Diabetes Breast cancer Father Heart disease Surgical History H/O dilation and curettage History of colposcopy S/P Social History Smoking Status: Never smoker alcohol intake: current alcohol intake frequency: a few times a month details: not while caffeine: Yes Type: coffee Number of servings: 1 what type of physical activity do you participate in: walking frequency: daily seatbelt use: always do you feel safe at home: Yes additional social history: - Alonso History 4 Elective abortions Hx Para 1 Spontaneous abortions 2 Hx # Term Pregnancies 1 Ectopic pregnancies Hx # Pregnancies Multiple births # of living children 1 Past Pregnancies Del. Date Name GA/Weeks Outcome Route Bth Weight Gen Labor Lgth Anesthesia Del Locatn Provider FOB 11/16/21 Samson 40 live - full term 7lbs 13oz Female [facility] Dr. Morgan Gupta Delivery Date: 11/16/21 Last Updated by: Jessi Multani APS. IOL-HR continued to drop, decided csection, cord was wrapped around baby's arm Visit Details Expected Delivery Route/Plan for repeat section Plans Covid status: declined Flu vaccine: given Tdap vaccine: given Rhogam: na LARC form signed: [] movement and labor precautions reviewed. Problem list reviewed and updated with the most current plan of care details and appropriate orders placed. Relevant counseling for the gestational age provided. Continue routine care and follow up unless otherwise noted in visit notes/problem list details OB Flowsheet Initial Weight: Not Recorded Date -?-?-?-?-?-?-?-?-?-?-?-?- EGA Weight BP Urine Prot -?-?-?-?-?-?-?-?-?-?-?-?- Glucose FHR FuHt Pres Dilation -?-?-?-?-?-?-?-?-?-?-?-?- Effaced St Visit Note 05/03/23 -?-?-?-?-?-?-?-?-?-?-?-?- 16w 3d 148 lb 4 oz 127/84 Nega tive -?-?-?-?-?-?-?-?-?-?-?-?- Negative 150 -?-?-?-?-?-?-?-?-?-?-?-?- JV- transfer renetta ha on heparin, switching to lovenox for APL. sees [facility] hematology. plan for rpt cs 05/31/23 -?-?-?-?-?-?-?-?-?-?-?-?- 20w 3d 158 lb 126/79 Negative -?-?-?-?-?-?-?-?--?-?-?-?- Negative 145 -?-?-?-?-?-?-?-?-?-?-?-?- JV- doing well o n the lovenox and submitted request for cs. 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 bedside scan shows anterior placenta. 06/28/23 -?-?-?-?-?-?-?-?-?-?-?-?- 24w 3d 159 lb 8 oz 122/83 -?-?-?-?-?-?-?-?-?-?-?-?- 155 25 -?-?-?-?-?-?-?-?-?-?-?-?- LC- lof/vb/ctx. good fm. 28 week labs ordered. 07/24/23 -?-?-?-?-?-?-?-?-?-?-?-?- 28w 1d 167 lb 4 oz 124/82 Nega tive -?-?-?-?-?-?-?-?-?-?-?-?- Negative 148 28 0 -?-?-?-?-?-?-?-?-?-?-?-?- MH-No VB, LOF. G ood Fm. Will rpt CBC 4 wk due to low platelets. See exam/pap collected 08/10/23 -?-?-?-?-?-?-?-?-?-?-?-?- 30w 4d 169 lb 2 oz 123/81 Nega tive -?-?-?-?-?-?-?-?-?-?-?-?- Negative 150 30 -?--?-?-?-?-?-?-?-?-?-?-?- KW- no vb/lof/ct x. good fm. 08/24/23 -?-?-?-?-?-?-?-?-?-?-?-?- 32w 4d 172 lb 142/87 115/77 Negative -?-?-?-?-?-?-?-?-?-?-?-?- Negative 140 32 -?-?-?-?-?-?-?-?-?-?-?-?- SM- no vb lof go od fm no regular ctx SM- no vb lof good fm no reg ular ctx discussed testing 08/28/23 -?--?-?-?-?-?-?-?-?-?-?-?- 33w 1d 172 lb 4 oz 135/86 Nega tive -?-?-?-?-?-?-?-?-?-?-?-?- Negative 140 34 -?-?-?-?-?-?-?-?-?-?-?-?- SM- no vb lof go od fm no regular ctx colp done and neg 08/30/23 -?-?-?-?-?-?-?-?-?-?-?-?- 33w 3d 171 lb 8 oz 129/82 Nega tive -?-?-?-?-?-?-?-?-?-?-?-?- Negative 150 -?-?-?-?-?-?-?-?-?-?-?-?- JV- no lof, vagi nal bleeding, or dec fm. on nst having q30 second to 1 minute contractions. sending to L&D for labs and fluids. 09/06/23 -?-?-?-?-?-?-?-?-?-?-?-?- 34w 3d 174 lb 128/80 Negative -?-?-?-?-?-?-?-?-?-?-?-?- Negative 150 -?-?-?-?-?-?-?-?-?-?-?-?- JV- nst reactive . still having uterine fasciculations but no decels. recommend to take magnesium 09/13/23 -?-?-?-?-?-?-?-?-?-?-?-?- 35w 3d 173 lb 4 oz 123/83 Nega tive -?-?-?-?-?-?-?-?-?-?--?-?- Negative 150 -?-?-?-?-?-?-?-?-?-?-?-?- JV- reactive nst . Uterine contractions still present. not feeling them. plan gbs next visit. 09/20/23 -?-?-?-?-?-?-?-?-?-?-?-?- 36w 3d 176 lb 6 oz 126/86 Nega tive -?-?-?-?-?-?-?-?-?-?-?-?- Negative 160 36 Cephalic 0 .5 -?-?-?-?-?-?-?-?-?-?-?-?- 50 -3 JV- reacti ve nst. not feeling the contractions. gbs collected. 09/27/23 -?-?-?-?-?-?-?-?-?-?-?-?- 37w 3d 180 lb 123/81 Negative -?-?-?-?-?-?-?-?-?-?-?-?- Negative 150 37 -?-?-?-?-?-?-?-?-?-?-?-?- JV- nst reactive . not feeling contractions. gbs neg. ROS Constitutional Constitutional: Denies change in weight, fatigue, fever(s), headache(s), poor appetite or weakness Eyes Eyes: Denies blurry vision, change in vision, seeing flashes or spots in vision ENT HEENT: Denies dizziness, headache(s), loss taste/smell or sore throat Cardiovascular Cardiovascular: Denies chest pain, dizziness, dyspnea, irregular heart rhythm, leg edema, palpitations, rapid heart rate or vomiting Respiratory/Chest Respiratory/Chest: Denies chest tightness, cough, dyspnea or breast pain Gastrointestinal Gastrointestinal: Denies abdominal pain, anorexia, constipation, cramping, diarrhea, hemorrhoids, vomiting or weight changes Genitourinary Genitourinary: Denies dysuria, flank pain, genital lesions, genital pain, urinary frequency or urinary urgency Musculoskeletal Musculoskeletal: Denies back pain, difficulty walking, joint pain, limited range of motion, muscle cramps or numbness Integumentary Integumentary: Denies lesions or unusual bruising Neurologic Neurologic: Denies abnormal movements, abnormal speech, dizziness, numbness, seizure-like activity or syncope Psychiatric Psychiatric: Denies anxiety, behavioral changes, change in appetite, change in libido, cognitive impairment, confusion, depression, difficulty concentrating, hallucinations or suicidal thoughts Endocrine Endocrinology: Denies excessive sweating, polydipsia or polyuria Hematologic/Lymphatic Hematologic/Lymphatic: Denies easy bleeding, easy bruising or lymphadenopathy Allergic/Immunologic Allergic/Immunologic: Denies itchy eyes, lip swelling, seasonal rhinorrhea, rhinitis, throat swelling, tongue swelling, eczemia, wheezing or asthma Vital Signs Vital Signs Vital Signs: 10/09/23 10:22 10/09/23 10:22 10/09/23 10:22 Temperature Temperature Source Temporal Pulse Rate 74 Blood Pressure 133/97 H BP Systolic 133 BP Diastolic 97 Pulse Ox 10/09/23 10:22 10/09/23 10:22 Temperature 97.7 F L Temperature Source Pulse Rate Blood Pressure BP Systolic BP Diastolic Pulse Ox 100 Weight Weight: 181 lb Body Mass Index (BMI) 33.0 Physical Exam Const alert, oriented x3, no apparent distress and healthy appearing General Appearance: cooperative; Negative for anxious HEENT normocephalic Face and Sinus: normal facial exam Eyes EOMs intact bilaterally and no scleral icterus General Eye: normal appearance of both eyes Neck full ROM and supple Lymph Lymphatic: no lymphadenopathy noted Chest Chest: abnormal inspection of the chest Resp normal respiratory effort Effort and Inspection: able to speak in complete sentences Cardio regular rate GI soft to palpation and non-tender Inspection: gravid Palpation: soft; Negative for tender Back/Spine no CVA tenderness Extremity normal to inspection, full ROM and no clubbing, cyanosis or edema General Extremity: Negative for calf tenderness or edema Skin Lesions: no lesions Rashes: no rashes Psych mental status grossly normal Labs Labs Labs: Blood Type A POSITIVE Antibody Screen NEGATIVE Hct 40.7 % (37-47) Hgb 13.6 g/dL (12.0-15.0) Pap Smear Positive Obstetrics Ultrasound Syphilis Total Ab Non-reactive Hepatitis C Antibody Pending HIV 1&2 Antibody Non-Reactive (Nonreactive) Glucose 1 Hr 50 gm 126 mg/dL (70-140) Gest Glucose Tolerance MG/DL Rhogam given: No Assessment & Plan (1) Thrombocytopenia affecting : COMMENT: 146. Rpt 4 wk 08/24/23: 146 again/stable. Rpt 4 wk (2) Abnormal Papanicolaou smear of cervix with positive human papilloma virus (HPV) test: COMMENT: hgsil 2021 --- WILI 1 07/2022/colp bx. repeat pap 07/24/2023: (3) APS (antiphospholipid syndrome): COMMENT: lovenox 40 mg daily. discussed baby ASA. recommend weekly NSTs from 32 on, growth q 4 weeks, 32wks nl growth, 36 wks nl growth (4) : QUALIFIERS: Weeks of gestation: 38 weeks Qualified Code(s): Z3A.38 - 38 weeks gestation of COMMENT: GBS neg, NIPT low risk, declined carrier, RCS 10/09/23. 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 PC Samson (girl) : Alonso PLAN: Plan After discussing the patient's diagnosis and treatment plan options, patient wishes to proceed with surgical management. I have discussed with the patient the risks, benefits, and alternatives of the procedure which include but are not limited to risks of anesthesia, bleeding, infection, possible damage to bowel, bladder, or surrounding vasculature which could lead to additional surgery to evaluate any complications. Patient agrees to procedure and wishes to proceed. ACOG/uptodate references given for additional information regarding procedure. plan for repeat section today. pt will let me know soon if wants tubal ligation.
--- NOTE | 2023-10-09 11:25 | DCINST_ITS ---
Discharge Instructions Diet Discharge Diet: No restrictions Activity Discharge Activity: May Not Drive (for 2 weeks or while taking narcotic pain medications.), May Shower and May Take a Tub Bath (in 7 days.) May resume sexual activity in: 4-6 weeks Weight Bearing Status: Full weight bearing Lifting Restrictions: 20 pounds Dressing / Incision Call your doctor if your incision/area has: Continuous Slow Oozing, Sudden Increased Bleeding, Increased Pain/ Swelling, Increased Redness and Foul Smelling Discharge Call your doctor if you observe: Fever of 101 or Higher and Using more than 1 pad per hour Suture Line Care: Avoid Pulling/Pushing and Avoid Pinching/Bending Cleanse incision/area with: Soap & Water and Keep Dressing Clean & Dry Follow Up Care Please Follow Up With: Lucy Yates DO When: Call [phone] to make an appointment for an incision check in 1-2 weeks. Test Results: Test results from this visit will be discussed in further detail at your follow- up appointment, if applicable. Discharge Plan Admission Admit Date/Time: 10/09/23 09:50 Attending Provider: Lucy Yates Primary Care Provider: Jenny Briones Discharge Orders/Prescriptions Prescriptions: No Action [id number]-[id number]-[id number]-FA 1 mg Tablet 1 tab PO DAILY enoxaparin 40 mg/0.4 mL syringe 40 mg subcut DAILY 30 Days Qty: 12 1RF Referrals / Follow Up: Jenny Briones MD [Primary Care Provider] -
[2023-10-09 11:39] LABS: Syphilis Antibodies Non-reactive
[2023-10-09] MEDS: Sodium Citrate/Citric Acid 30 ML UDC PO (11:47)
[2023-10-09] MEDS: Cefazolin 2 GM in 0.9% Normal Saline (100mL Bag) 100 ML IV (11:58)
[2023-10-09 11:59] LABS: Hepatitis C Antibody Non-Reactive (Nonreactive)
--- NOTE | 2023-10-09 13:19 | EX.PCM.OBRPT ---
Assessment & Plan (1) Thrombocytopenia affecting : COMMENT: 146. Rpt 4 wk 08/24/23: 146 again/stable. Rpt 4 wk (2) Abnormal Papanicolaou smear of cervix with positive human papilloma virus (HPV) test: COMMENT: hgsil 2021 --- WILI 1 07/2022/colp bx. repeat pap 07/24/2023: (3) APS (antiphospholipid syndrome): COMMENT: lovenox 40 mg daily. discussed baby ASA. recommend weekly NSTs from 32 on, growth q 4 weeks, 32wks nl growth, 36 wks nl growth (4) : QUALIFIERS: Weeks of gestation: 38 weeks Qualified Code(s): Z3A.38 - 38 weeks gestation of COMMENT: GBS neg, NIPT low risk, declined carrier, RCS 10/09/23. 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 PC Samson (girl) : Alonso 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 Calculator Estimated Delivery Date Method Current WG Current Estimate 10/15/23 LMP (Certain) 39w 1d Gestational age: 39 weeks 1 day Details Operative Information Date of Procedure: 10/09/23 Pre-Operative Diagnosis: 39 weeks , prior section and desires permanent sterilization Post-Operative Diagnosis: 39 weeks , prior section and desires permanent sterilization Classification: Scheduled Procedure Type: low transverse nursing assistant #1: Mark Perkins Type of Anesthesia: Spinal Antibiotic Given: Ancef 2 grams IV x1 Estimated Blood Loss: 500cc Procedure Start Time: 12:27 Procedure Stop Time: 13:05 Time of Delivery: 12:32 Findings Description of Procedure: Procedure: The patient was brought to the operating room where spinal anesthesia was found to be adequate. She was prepped and draped in the normal sterile fashion and was placed in a dorsal supine position with a leftward tilt. Pfannenstiel skin incision was made with a scalpel and carried through to the underlying layers. The fascia was nicked in the midline and extended laterally using Casey scissors. The anterior aspect of the fascia was grasped with Nathen clamps and the underlying rectus muscles dissected off using the Metzenbaum scissors. The inferior aspect the fascia was also grasped with Nathen clamps and the underlying rectus muscle dissected off with the Metzenbaum scissors. The rectus muscles were in the midline. Peritoneum was entered sharply. The uterus was identified and a bladder blade was inserted into the abdomen. Bladder flap was created off the uterus using Metzenbaum scissors. A transverse incision was made with a scalpel and extended laterally manually. The infant's head was grasped with the help of my hospital aides and assistants teacher and fundal pressure the was delivered through the uterine incision without difficulty. The mouth and nares were bulb suctioned. After a 30 second delay the cord was clamped and cut. The was handed off to the awaiting industrial organizational psychologist for routine assessment. Placenta was delivered manually without difficulty. The uterus was exteriorized and cleared of all clots and debris. Incision was closed with an 0 Vicryl suture in a running locked fashion. Second layer of 1-0 monocryl suture was used in imbricating manner to create excellent closure and hemostasis. The right tube was grasped with a [place] clamp and the underlying mesosalpinx was cauterized and cut with the ligasure device removing the entire tube and fimbriated end. The same procedure was performed on the opposite side. Both fallopian tubes were passed off for pathology analysis. The uterus was returned to the abdomen. The gutters were cleared of all clots and debris. The peritoneum was closed in a pursestring pattern using a 3-0 Vicryl suture. This muscle was reapproximated with a 3-0 Vicryl. The fascia was closed with an 0 PDS stratafix suture. Subcutaneous tissue layer was closed using a plain gut suture. The skin was closed with a 4-0 Monocryl subcuticular stitch. The skin was also sealed with surgical glue. The patient tolerated the procedure well sponge lap and needle counts were correct at each tissue closure plane and the patient is now being brought to the recovery room in stable condition Presentation: Positive for Vertex Amniotic Membrane Rupture Type: Artificial Amniotic Fluid Description: Clear Placental Delivery Description: Manual Removal Placenta Disposition: [facility] Cord Vessel Description: 3 Vessels Cord Entanglement: None A Gender: Male (1 minute): 8 (5 minute): 9 Delayed Cord Clamping: Yes Complications Risks of Surgery Discussed w/Patient: Bleeding, Anesthesia Risks, Infection, Need for Future C-Sections, Permanency, Failure Rate of 1 to 2%, Injury to surrounding structure(s) including bowel and bladder and Availability of other non-permanent control options Complications: none Multi Select Codes Urinary/Genital Urinary/Genital CPT Codes: 37512 Delivery [facility]
[2023-10-09] MEDS: Oxytocin 15 Units/NS 250ml 15 UNITS/250 ML IV.SOLN 83 UNITS IV (13:34)
[2023-10-09] MEDS: Ketorolac 30 MG/ML Syringe IV ×2 (14:02→19:37)
[2023-10-09] MEDS: Lactated Ringers 1,000 ML 100 ML IV (16:26)
[2023-10-09 16:42] LABS: Pathology Specimen OB SEE PATHOLOGY REPORT
[2023-10-09] MEDS: Nalbuphine 10 MG/ML Ampul 5 MG IV ×2 (19:03→19:16)
[2023-10-09] MEDS: 0.9% Saline Lock 10 ML Syringe IV (19:37)
[2023-10-10 00:50] VITALS: BP 108/80; PULSE 57; RESP 16; TEMP 36.2; O2SAT 98; O2SAT 99
[2023-10-10] MEDS: Enoxaparin 40 MG/0.4 ML Syringe SC (01:23)
[2023-10-10] MEDS: Nalbuphine 10 MG/ML Ampul 5 MG IV (01:23)
[2023-10-10] MEDS: Ketorolac 30 MG/ML Syringe IV ×2 (01:23→07:12)
[2023-10-10] MEDS: 0.9% Saline Lock 10 ML Syringe IV ×2 (01:24→07:12)
[2023-10-10 04:28] VITALS: BP 102/68; PULSE 67; RESP 16; TEMP 36.3; O2SAT 95
[2023-10-10] MEDS: Acetaminophen 500 MG Tablet 1000 MG PO ×2 (04:32→10:36)
[2023-10-10 06:42] LABS: Hematocrit 36.7 % (37-47); Hemoglobin 12.3 g/dL (12.0-15.0); Mean Corp Hgb Conc 33.5 g/dL (32-36); Mean Corpuscular Volume 92.4 fL (81-99); Mean Platelet Vol. 11.2 fl (6.2-12.0); Platelet Count 127 K/mm3 (150-450); RBC Distribution Width CV 13.2 % (11.6-14.6); RBC Distribution Width SD 45.1 fl (35.1-43.9); Red Blood Count 3.97 M/mm3 (4.2-5.4); White Blood Count 9.5 K/mm3 (4.4-11.0)
[2023-10-10 07:45] VITALS: BP 123/80; PULSE 97; RESP 16; TEMP 36.6; O2SAT 99
--- NOTE | 2023-10-10 07:55 | PN.OBGYN_ITS ---
Subjective Subjective Patient doing well without complaints. Tolerating PO. Ambulating and voiding without difficulty. Feeding well. Denies chest pain, shortness of breath, calf pain/swelling, fevers, chills, lightheadedness. Objective Data Objective Data Vital Signs: Vital Signs Temp Pulse Resp BP Pulse Ox O2 Del Method 97.3 F L 67 16 102/68 95 Room Air 10/10/23 04:28 10/10/23 04:28 10/10/23 04:28 10/10/23 04:28 10/10/23 04:28 10/10/23 04:28 Oxygen Delivery Method Room Air Weight: 181 lb Body Mass Index (BMI) 33.0 Intake & Output: Intake and Output for Last 24 Hours 10/08/23 10/09/23 10/10/23 23:59 23:59 23:59 Intake Total 2305 / 2305 840 / 840 Output Total 750 / 750 1650 / 1650 Balance 1555 / 1555 -810 / -810 Lab / Micro Data Attestation: I reviewed the patient's lab results. 10/10/23 06:20 Labs: Laboratory Results - last 24 hr 10/09/23 10:15: WBC 8.1, RBC 4.36, Hgb 13.6, Hct 40.7, MCV 93.3, MCH 31.2, MCHC 33.4, RDW Std Deviation 45.2 H, RDW Coeff of Paula 13.2, Plt Count 147 L, MPV 11.4, Immature Gran % (Auto) 0.400, Neut % (Auto) 68.7, Lymph % (Auto) 20.5, [place] % (Auto) 9.8, Eos % (Auto) 0.4, Baso % (Auto) 0.2, Absolute Neuts (auto) 5.6, Absolute Lymphs (auto) 1.67, Nucleated RBC % 0, Syphilis Total Ab Non- reactive, Hepatitis C Antibody Non-Reactive, Blood Type A POSITIVE, Antibody Sc reen NEGATIVE 10/10/23 06:20: WBC 9.5, RBC 3.97 L, Hgb 12.3, Hct 36.7 L, MCV 92.4, MCH 31.0, MCHC 33.5, RDW Std Deviation 45.1 H, RDW Coeff of Paula 13.2, Plt Count 127 L, MPV 11.2 ROS Constitutional Constitutional: Reports systems reviewed and no addt'l complaints, except as documented; Denies anorexia or headache(s) Cardiovascular Cardiovascular: Reports systems reviewed and no addt'l complaints, except as documented; Denies dizziness, dyspnea, nausea or tachypnea Respiratory/Chest Respiratory/Chest: Reports systems reviewed and no addt'l complaints, except as documented; Denies cough, dyspnea, shortness of breath at rest or tachypnea Gastrointestinal Gastrointestinal: Reports systems reviewed and no addt'l complaints, except as documented; Denies abdominal pain, constipation or nausea Genitourinary Genitourinary: Reports systems reviewed and no addt'l complaints, except as documented; Denies burning urination, difficulty urinating, dysuria, urinary frequency or urinary incontinence Musculoskeletal Musculoskeletal: Reports systems reviewed and no addt'l complaints, except as documented Integumentary Integumentary: Reports systems reviewed and no addt'l complaints, except as documented Neurologic Neurologic: Reports systems reviewed and no addt'l complaints, except as documented; Denies abnormal speech, dizziness or headache(s) Psychiatric Psychiatric: Reports systems reviewed and no addt'l complaints, except as documented Endocrine Endocrinology: Reports systems reviewed and no addt'l complaints, except as documented Hematologic/Lymphatic Hematologic/Lymphatic: Reports systems reviewed and no addt'l complaints, except as documented Physical Exam Const alert, oriented x3 and no apparent distress Neck full ROM Resp normal respiratory effort, normal air movement and no retractions Effort and Inspection: able to speak in complete sentences and symmetric chest movement GI soft to palpation Inspection: incision intact Bladder / Kidney Exam: bladder normal to palpation Uterus Palpation: uterus fundus Extremity normal to inspection and full ROM Psych mental status grossly normal, thought process normal and cooperative Assessment & Plan (1) delivery delivered: PLAN: s/p LTCS PPD # 1 1. routine post care 2. breast feeding- support given 3. rh positive 4. rubella immune 5. Discharge home Charges/Coding Multi Select Codes Urinary/Genital Urinary/Genital CPT Codes: No Charge
[2023-10-10] MEDS: Senna/Docusate Sodium 1 Tablet PO (10:34)
[2023-10-10 13:11] VITALS: BP 120/78; PULSE 55; RESP 16; TEMP 36.6; O2SAT 96
[2023-10-10] MEDS: Ibuprofen 600 MG Tablet PO (14:08)
== END 2023-10-10 15:25 | disposition home or self-care (01) | DRG 784 ==
PROVIDERS: Admitting Provider Obstetrics & Gynecology; PCP Internal Medicine; Visit Provider Obstetrics & Gynecology
PROC: 10D00Z1 Extraction of Products of Conception, Low, Open Approach (ICD-10-PCS; CPT 59514; principal; 2023-10-09 11:45)
DX: O34.219 Maternal care for unspecified type scar from previous cesarean delivery (principal); O99.113 Other diseases of the blood and blood-forming organs and certain disorders involving the immune mechanism complicating pregnancy, third trimester; D68.61 Antiphospholipid syndrome; O99.12 Other diseases of the blood and blood-forming organs and certain disorders involving the immune mechanism complicating childbirth; D69.6 Thrombocytopenia, unspecified; O34.83 Maternal care for other abnormalities of pelvic organs, third trimester; N83.8 Other noninflammatory disorders of ovary, fallopian tube and broad ligament; Z37.0 Single live birth; Z3A.39 39 weeks gestation of pregnancy; Z79.01 Long term (current) use of anticoagulants; Z87.59 Personal history of other complications of pregnancy, childbirth and the puerperium; Z30.2 Encounter for sterilization
CPT/HCPCS: 59025; 59050; 85025; 85027; 86780; 86803; 86850; 86900; 86901; 88302; 88305; 99221; J7120; A4216; G0378; J2405

== ENCOUNTER → 2023-11-22 | Outpatient (CLI) | payer OTHER, SELFPAY ==
[2023-11-28 22:06] LABS: HPV APTIMA, High Risk Positive (Negative); HPV Genotype 16, Aptima Positive (Negative); HPV Genotype 18,45 Aptima Negative (Negative)
== END | disposition home or self-care (01) ==
LOC: LABSPEC 16:48
PROVIDERS: PCP Internal Medicine; Referring Provider Obstetrics & Gynecology; Visit Provider Obstetrics & Gynecology
DX: Z12.4 Encounter for screening for malignant neoplasm of cervix (principal)
CPT/HCPCS: 87624; 88175; G0145

== ENCOUNTER → 2024-01-29 | Outpatient (CLI) | payer OTHER, SELFPAY ==
--- NOTE | 2024-01-29 | ECC_PTH ---
PATIENT: NATALEE WERNER [id number] AGE/SX: 33/F ROOM: RE01/29/[address]: Dr. Lucy Yates DO : 1990 BED: DIS: 01/29/2024 SPEC #: [id number] RECD: 01/29/24 16:11 STATUS: ANATOLY BARCLAY #: [id number] JERARDO: 01/29/24 00:[address]: Lucy Yates DEPT: SURGICAL PATHOLOGY RECD BY: Tommy Buck ENTERED: 01/30/24 08:37 SP TYPE: RL GARCIA DR: Dr. Jenny Briones MD Tissues: A - Endocervical B - Uterine cervix, NOS Procedures: Surgery Specimen Level IV HEADER OPERATION: Colposcopy PRE-OP DIAGNOSIS: HPV positive TISSUE SUBMITTED: A. 9 o'clock[place] ECC MICROSCOPIC DIAGNOSIS A. Cervix, 9o'clock, biopsy: Focal changes consistent with HPV cytopathic effects. Acute and chronic inflammation. See comment. B. Endocervical curettings: Scant fragment of benign ectocervical and endocervical epithelium and mucous, negative for dysplasia. / 01/31/2024 COMMENT A. Immunohistochemistry ([id number]) for surrogate HPV marker (p16) supports the above diagnosis. MICROSCOPIC DESCRIPTION Slides are reviewed. GROSS DESCRIPTION A. Received in fixative is one container labeled with the patient's name and designated 9 o'clock. The specimen consists of two irregular fragments of light ortiz soft tissue that in aggregate measure 0.6 x 0.3 x 0.1 cm. The specimen is totally submitted in one cassette. B. Received in fixative is a metallic brush with adherent minute fragments of ortiz-red tissue and labeled with the patient's name and and designated per the requisition as ECC BRUSH. The material is dislodged from the brush and submitted for cell block preparation in one cassette. / 01/30/2024 TC:5
--- NOTE | 2024-01-29 | IMM_PTH ---
PATIENT: NATALEE WERNER LOC: [facility] U#:[id number] AGE/SX: 33/F ROOM: RE01/29/[address]: Dr. Lucy Yates DO : 1990 BED: DIS: 01/29/2024 SPEC #: [id number] RECD: 01/31/24 12:55 STATUS: ANATOLY REQ #: [id number] JERARDO: 01/29/24 00:[address]: Lucy Yates DEPT: IMMUNOHISTOCHEMISTRY RECD BY: Joe Martinez ENTERED: 01/31/24 12:56 SP TYPE: IMMUNO OTHR DR: Dr. Jenny Briones MD Tissues: A - Uterine cervix, NOS Procedures: p16 (initial) KI-67 (add) PHYSICIAN & INSTITUTION [facility] [phone] SPECIMEN INFORMATION: Tissue Source: A- 9 o'clock Clinical Info: HPV positive Specimen Number: [id number] CPT code: 63879,02932 METHODOLOGY: Deparaffinized sections of prefer/formalin-fixed tissue or PAP/DQ stained slides are incubated with monoclonal/polyclonal antibodies/oligonucleotide probes. Localization is made via biotin free immunoperoxidase method. Appropriate controls are performed and reacted as expected. Results on target cell population are indicated in the following table: RESULTS: ANTIBODY / CLONE RESULT Block A P16 (E6H4) positive, focal and patchy Ki-67 (30-9) positive, low These tests were developed and their performance characteristics determined by [facility]. They may not have been cleared or approved by the U.S. Food and Drug Administration. The FDA has determined that such clearance or approval is not necessary. The above immunohistochemical/dualISH markers are ordered and reviewed by the Pathologist. INTERPRETATION: A. Cervix, 9o'clock, biopsy: Focal changes consistent with HPV cytopathic effects. SILVIA/ 02/01/2024
== END | disposition home or self-care (01) ==
LOC: LABSPEC 16:10
PROVIDERS: PCP Internal Medicine; Visit Provider Obstetrics & Gynecology
DX: N72 Inflammatory disease of cervix uteri (principal); R87.820 Cervical low risk human papillomavirus (HPV) DNA test positive
CPT/HCPCS: 88305; 88341; 88342

== ENCOUNTER → 2024-05-22 | Outpatient (CLI) | payer OTHER, SELFPAY ==
[2024-05-22 13:48] LABS: Absolute Lymphocyte Count 2.24 X10^3/uL (0.83-4.51); Absolute Neutrophil Count 4.7 X10^3/uL (2.0-7.7); Basophil# 0.05 X10^3/uL; Basophil% 0.7 % (0-1); Eosinophil# 0.07 X10^3/uL; Eosinophils% 0.9 % (0-5); Hemoglobin 14.7 g/dL (12.0-15.0); Lymphocyte # 2.24 X10^3/ul (0.83-4.51); Lymphocyte % 29.2 % (19-41); Mean Corp Hgb Conc 33.4 g/dL (32-36); Mean Corpuscular Hgb 29.7 pg (27.0-32.0); Mean Corpuscular Volume 88.9 fL (81-99); Monocyte# 0.64 X10^3/uL; Monocyte% 8.4 % (0-10); NRBC Flagged by Analyzer 0 % (0-5); Neutrophil # 4.65 X10^3/uL (2.7-7.7); Neutrophil % 60.7 % (47-70); Platelet Count 214 K/mm3 (150-450); RBC Distribution Width CV 12.3 % (11.6-14.6); RBC Distribution Width SD 39.8 fl (35.1-43.9); Red Blood Count 4.95 M/mm3 (4.2-5.4); White Blood Count 7.7 K/mm3 (4.4-11.0)
[2024-05-22 15:13] LABS: AST(SGOT) 16 U/L (15-37); Alanine Aminotransfer ALT/SGPT 16 U/L (13-56); Albumin, Serum 3.8 g/dL (3.2-5.0); Alkaline Phosphatase 53 U/L (45-117); Anion Gap 5 (5-15); BUN 14 mg/dL (7-18); BUN/Creat Ratio 19.6 RATIO (10-20); Chloride 108 mmol/L (98-107); Creatinine, Serum 0.72 mg/dL (0.55-1.02); EST Glomerular Filtration Rate 98 mL/min (>60); Est Glom Filt Rate - Afr Amer 119 mL/min (>60); Globulin 3.7 g/dL (2.2-4.2); Glucose 126 mg/dL (74-106); Potassium 3.9 mmol/L (3.5-5.1); Protein, Total 7.5 g/dL (6.4-8.2); Rheumatoid Factor < 10.0 IU/mL (<15); Sodium Level 140 mmol/L (136-145); T4 Free Direct 0.89 ng/dL (0.76-1.46)
== END | disposition home or self-care (01) ==
PROVIDERS: PCP Internal Medicine; Referring Provider Physician Assistant; Visit Provider Physician Assistant
DX: L30.8 Other specified dermatitis (principal)
CPT/HCPCS: 36415; 80053; 84439; 84443; 85025; 86038; 86235; 86431

== ENCOUNTER → 2025-02-03 | Outpatient (CLI) | payer OTHER, SELFPAY | END | disposition home or self-care (01) | LOC: LABSPEC 16:47 | PROVIDERS: PCP Internal Medicine; Visit Provider Obstetrics & Gynecology | DX: Z12.4 Encounter for screening for malignant neoplasm of cervix (principal) | CPT/HCPCS: 87624; 88175; G0145 ==